=== PATIENT | female | born 1960 | race Caucasian/White ===

== ENCOUNTER → 2017-02-10 | Outpatient (CLI) | payer MEDICARE, MEDICAID ==
--- NOTE | 2017-02-10 14:15 | WOMENS IMAGING REPORT ---
EXAM DESCRIPTION: 3D SCREENING MAMMO BILAT COMPLETED DATE/TIME: 02/10/2017 1:57 pm REASON FOR STUDY: ROUTINE SCREENING 3D; Z12.31 Z12.31 ENCNTR SCREEN MAMMOGRAM FOR MALIGNANT NEOPLAS M OF [place] COMPARISON: 02/08/2016 and 12/29/2013. TECHNIQUE: Standard craniocaudal and mediolateral oblique views of each breast recorded using digita l acquisition and breast tomosynthesis. LIMITATIONS: None. FINDINGS: No masses, calcifications or architectural distortion. No areas of suspicion. Read with the assistance of CAD. .[facility] - R2 Cenova Version 1.3 .[facility] Imaging - R2 Cenova Version 1.3 .[facility] Imaging - R2 Cenova Version 2.4 .[facility] - R2 Cenova Version 2.4 .[facility] - R2 [employer] Version 9.2 IMPRESSION: NORMAL MAMMOGRAM. BIRADS 1. BREAST DENSITY: b. There are scattered areas of fibroglandular density. BIRAD: 1 NEGATIVE RECOMMENDATION: ROUTINE SCREENING COMMENT: The patient has been notified of the results by letter per SA requirements. Additional no tification policies are in place for contacting patient with suspicious or incomplete findings. Quality ID #[id number]: The [employer] recommends an annual screening mammogram for women aged 40 years or over. This facility utilizes a reminder system to ensure that all patients receive reminder letters, and/or direct phone calls for appointments. This includes reminders for routine scr eening mammograms, diagnostic mammograms, or other Breast Imaging Interventions when appropriate. Th is patient will be placed in the appropriate reminder system. The [employer] [place] [employer] (ACR) has developed recommendations for screening MRI of the breast s in certain patient populations, to be used in conjunction with mammography. Breast MRI surveillanc e may be appropriate for women with more than 20% lifetime risk of developing breast cancer as deter mined by genetic testing, significant family history of the disease, or history of mantle radiation f or Hodgkins Disease. ACR Practice Guidelines 2008. DBT Technology DBT is a type of tomographic mammography. With conventional mammography, overlapping breast tissue ma y make lesions difficult to detect, even with good compression. DBT uses an x-ray tube that rotates a round the breast, taking images at different angles. These images are then combined to create thin sl ices of the breast that the radiologist can view as a 3D reconstruction. The [employer] unit can perform full-field digital mammograms (2D imaging); or DBT (3D imaging); or both, in a combination mode that quickly performs both the mammogram and the tomosynthesis scan while the breast is still compressed. PQRS 6045F: Fluoroscopic imaging is not utilized for breast tomosynthesis. TECHNICAL DOCUMENTATION: FINDING NUMBER: (1) ASSESSMENT: (1) JOB ID: [id number] [employer]- All Rights Reserved
== END ==
LOC: WI 11:36
PROVIDERS: ATTEND Family Medicine
DX: Z12.31 Encounter for screening mammogram for malignant neoplasm of breast (principal)
CPT/HCPCS: 77063; G0202; 77067

== ENCOUNTER 2019-01-31 07:27 | Inpatient (IN) | payer MEDICARE ==
--- NOTE | 2019-01-31 09:23 | ER Document Report ---
ED Medical Screen (RME) - General Chief Complaint: Shortness Of Breath Stated Complaint: SHORTNESS OF BREATH Time Seen by Provider: 01/31/19 09:16 Primary Care Provider: NARDA MODI MD [Primary Care Provider] - Follow up as needed Mode of Arrival: Medic Information source: Patient Notes: Patient presents emergency department via EMS for complaints of shortness of breath congestion and fever since Thursday. History of hypertension multiple myeloma. Still taking chemo tabs. Complains of upper back pain. No trauma. Received DuoNeb by EMS no active wheezing at this time. I have greeted and performed a rapid initial assessment of this patient. A comprehensive ED assessment and evaluation of the patient, analysis of test results and completion of the medical decision making process will be conducted by additional ED providers. Dictation of this chart was performed using voice recognition software; therefore, there may be some unintended grammatical errors. TRAVEL OUTSIDE OF THE [place] IN LAST 30 DAYS: No - Related Data Allergies/Adverse Reactions: penicillin V [Penicillin V] Allergy (Unknown, Verified 01/31/19 07:28) vancomycin Allergy (Unknown, Verified 01/31/19 07:28) Pruritis codeine [Codeine] Allergy (Verified 01/31/19 07:28) Past Medical History - Social History Chew tobacco use (# tins/day): No Frequency of alcohol use: None Drug Abuse: None - Past Medical History Cardiac Medical History: Reports: Hx Hypertension Denies: Hx Coronary Artery Disease, Hx Heart Attack Pulmonary Medical History: Denies: Hx Asthma, Hx Bronchitis, Hx COPD, Hx Pneumonia Neurological Medical History: Denies: Hx Cerebrovascular Accident, Hx Seizures Renal/ Medical History: Denies: Hx Peritoneal Dialysis Musculoskeltal Medical History: Denies Hx Arthritis Past Surgical History: Denies: Hx Hysterectomy - Immunizations Hx Diphtheria, Pertussis, Tetanus Vaccination: Yes Physical Exam - Vital signs Vitals: Temp Pulse Resp BP Pulse Ox 98.1 F 118 H 24 H 133/81 H 93 01/31/19 07:31 01/31/19 07:31 01/31/19 07:31 01/31/19 07:31 01/31/19 07:31 Course - Vital Signs Vital signs: Temp Pulse Resp BP Pulse Ox 98.1 F 118 H 24 H 133/81 H 93 01/31/19 07:31 01/31/19 07:31 01/31/19 07:31 01/31/19 07:31 01/31/19 07:31 Doctor's Discharge - Discharge Referrals: NARDA MODI MD [Primary Care Provider] - Follow up as needed
[2019-01-31 10:20] LABS: ABSOLUTE LYMPHOCYTES (AUTO) 0.2 10^3/uL (0.5-4.7); ABSOLUTE MONOCYTES (AUTO) 0.5 10^3/uL (0.1-1.4); ABSOLUTE NEUT (AUTO) 2.1 10^3/uL (1.7-8.2); BASOPHILS % (AUTO) 0.2 % (0-2); EOSINOPHILS % (AUTO) 0.2 % (0-6); HEMATOCRIT 36.2 % (36.0-47.0); HEMOGLOBIN 12.7 g/dL (12.0-15.5); MEAN CORPUSCULAR VOLUME 94 fl (80-97); MONOCYTES % (AUTO) 17.4 % (3-13); PLATELET COUNT 117 10^3/uL (150-450); RED BLOOD COUNT 3.85 10^6/uL (3.72-5.28); RED CELL DISTRIBUTION WIDTH 13.7 % (11.5-14.0); SEGMENTED NEUTROPHILS % (AUTO) 75.2 % (42-78); TOTAL CELLS COUNTED % (AUTO) 100 %; WHITE BLOOD COUNT 2.7 10^3/uL (4.0-10.5)
[2019-01-31 10:25] LABS: ALANINE AMINOTRANSFERASE 26 U/L (9-52); ALBUMIN 3.9 g/dL (3.5-5.0); ALKALINE PHOSPHATASE 96 U/L (38-126); ANION GAP 11 (5-19); ASPARTATE AMINO TRANSFERASE 26 U/L (14-36); BILIRUBIN,DIRECT 0.3 mg/dL (0.0-0.4); BLOOD UREA NITROGEN 12 mg/dL (7-20); CALCIUM 8.5 mg/dL (8.4-10.2); CARBON DIOXIDE 27 mmol/L (22-30); CHLORIDE 99 mmol/L (98-107); CREATINE KINASE 86 U/L (30-135); GLUCOSE 137 mg/dL (75-110); SODIUM 137.3 mmol/L (137-145); TOTAL PROTEIN 7.4 g/dL (6.3-8.2)
[2019-01-31 10:29] LABS: POTASSIUM 2.9 mmol/L (3.6-5.0)
--- NOTE | 2019-01-31 10:30 | RADIOLOGY REPORT (SQ) ---
EXAM DESCRIPTION: CHEST 2 VIEWS COMPLETED DATE/TIME: 01/31/2019 10:20 am REASON FOR STUDY: sob COMPARISON: 03/04/2013 EXAM PARAMETERS: NUMBER OF VIEWS: two views TECHNIQUE: Digital Frontal and Lateral radiographic views of the chest acquired. RADIATION DOSE: NA LIMITATIONS: none FINDINGS: LUNGS AND PLEURA: Slight atelectasis or scarring at the left lung base. The right lung i s clear. No pneumothorax or pleural effusion. MEDIASTINUM AND HILAR STRUCTURES: No masses or contour abnormalities. HEART AND VASCULAR STRUCTURES: Heart normal size. No evidence for failure. BONES: No acute findings. HARDWARE: None in the chest. OTHER: No other significant finding. IMPRESSION: 1. Slight atelectasis or scarring at the left lung base. No acute findings. TECHNICAL DOCUMENTATION: JOB ID: [id number] [employer]- All Rights Reserved Reading location - IP/workstation name: [email or web address]
[2019-01-31] MEDS ORDERED: IPRATROPIUM/ALBUTEROL 0.5-2.5 MG/3 ML AMPUL NEB ONE (11:38)
--- NOTE | 2019-01-31 11:43 | ER Document Report ---
ED General - General Chief Complaint: Shortness Of Breath Stated Complaint: SHORTNESS OF BREATH Time Seen by Provider: 01/31/19 09:16 Mode of Arrival: Medic TRAVEL OUTSIDE OF THE [place] IN LAST 30 DAYS: No - HPI Notes: Patient is a 58-year-old female with a history of high blood pressure and multiple myeloma who presents with a chief complaint of shortness of breath and congestion. Patient states that she has had a productive cough with yellow sputum since Thursday as well as nasal congestion and runny nose. Patient states she has had sweats and chills. Patient is unsure if she has had a fever as she does not have a thermometer at home but she feels like she has been febrile. States that on Thursday she did have the episodes of diarrhea. - Related Data Allergies/Adverse Reactions: penicillin V [Penicillin V] Allergy (Unknown, Verified 01/31/19 07:28) vancomycin Allergy (Unknown, Verified 01/31/19 07:28) Pruritis codeine [Codeine] Allergy (Verified 01/31/19 07:28) Past Medical History - General Information source: Patient - Social History Smoking Status: Never Smoker Chew tobacco use (# tins/day): No Frequency of alcohol use: None Drug Abuse: None Family History: Reviewed & Not Pertinent Patient has suicidal ideation: No Patient has homicidal ideation: No - Past Medical History Cardiac Medical History: Reports: Hx Hypertension Denies: Hx Coronary Artery Disease, Hx Heart Attack Pulmonary Medical History: Reports: Other - Hx. Bronchitis Denies: Hx Asthma, Hx Bronchitis, Hx COPD, Hx Pneumonia EENT Medical History: Reports: None Neurological Medical History: Reports: None. Denies: Hx Cerebrovascular Accident, Hx Seizures Endocrine Medical History: Reports: None Renal/ Medical History: Reports: None. Denies: Hx Peritoneal Dialysis Malignancy Medical History: Reports: Other - Multiple Myeloma, currently on oral chemo daily GI Medical History: Reports: None Musculoskeletal Medical History: Reports None, Denies Hx Arthritis Skin Medical History: Reports None Psychiatric Medical History: Reports: None Traumatic Medical History: Reports: None Infectious Medical History: Reports: None Surgical Hx: Negative Past Surgical History: Denies: Hx Hysterectomy - Immunizations Hx Diphtheria, Pertussis, Tetanus Vaccination: Yes Review of Systems - Review of Systems Constitutional: See HPI EENT: See HPI Cardiovascular: No symptoms reported Respiratory: See HPI Gastrointestinal: See HPI Genitourinary: No symptoms reported Female Genitourinary: No symptoms reported Musculoskeletal: No symptoms reported Skin: No symptoms reported Hematologic/Lymphatic: No symptoms reported Neurological/Psychological: No symptoms reported Physical Exam - Vital signs Vitals: Temp Pulse Resp BP Pulse Ox 98.1 F 118 H 24 H 133/81 H 93 01/31/19 07:31 01/31/19 07:31 01/31/19 07:31 01/31/19 07:31 01/31/19 07:31 Interpretation: Hypertensive, Tachycardic, Tachypneic - Notes Notes: GENERAL: Well-appearing, well-nourished and in no acute distress. HEAD: Atraumatic, normocephalic. EYES: Pupils equal round and reactive to light, extraocular movements intact, sclera anicteric, conjunctiva are normal. ENT: TMs normal, nares patent, oropharynx clear without exudates. Dry mucous membranes. NECK: Normal range of motion, supple without lymphadenopathy or JVD. LUNGS: Coarse breath sounds bilaterally throughout with scattered rhonchi and expiratory wheeze in lower bases. HEART: Tachycardiac rate with regular rhythm without murmurs, rubs or gallops. ABDOMEN: Soft, nontender, normoactive bowel sounds. No guarding, no rebound. No masses appreciated. BACK: No cervical, thoracic, lumbar midline tenderness. No saddle anesthesia, normal distal neurovascular exam. GENITOURINARY: Deferred. EXTREMITIES: Normal range of motion, no pitting or edema. No clubbing or cya nosis. NEUROLOGICAL: Cranial nerves II through XII grossly intact. Normal speech, normal gait. PSYCH: Normal mood, normal affect. SKIN: Warm, Dry, normal turgor, no rashes or lesions noted. Course - Re-evaluation Re-evalutation: 01/31/19 12:[address] Field who is patient's oncologist. Patient does report a history of low potassium. She states she takes 40 mEq twice a day but has not has her dose today. Potassium replacement initiated, magnesium level added on and low at 1.5, will replace magnesium in conjunction with potassium. Once speaking with oncologist will consult for admission due to hypokalemia, non specific t wave abnormalities and borderline prolonged QT at 481. Patient is in a sinus tach at 105 on the monitor with the occasional PVC. 12:30 Updated patient on plan for admission. Verbalized understanding and denies questions at this time. Patient states after receiving duoneb she feels relief with her breathing and shortness of breath. 01/31/19 13:00 Dr. Jones at bedside for patient evaluation. - Vital Signs Vital signs: Temp Pulse Resp BP Pulse Ox 97.9 F 88 20 129/67 H 93 01/31/19 16:17 01/31/19 16:17 01/31/19 16:17 01/31/19 16:17 01/31/19 16:17 - Laboratory Result Diagrams: 01/31/19 09:49 01/31/19 09:49 Laboratory results interpreted by me: 01/31/19 01/31/19 01/31/19 09:49 09:49 09:49 WBC 2.7 L Plt Count 117 L Lymphocytes % 7.0 L Monocytes % 17.4 H Absolute Lymphocytes 0.2 L Potassium 2.9 L* Est GFR (Non-Af Amer) 50 L Glucose 137 H Lactic Acid 2.4 H Magnesium 01/31/19 09:49 WBC Plt Count Lymphocytes % Monocytes % Absolute Lymphocytes Potassium Est GFR (Non-Af Amer) Glucose Lactic Acid Magnesium 1.5 L - Diagnostic Test Radiology reviewed: Reports reviewed - EKG Interpretation by Me Additional EKG results interpreted by me: 01/31/19 12:54 Patient's EKG is a sinus rhythm at a rate of 94, LA 140, QT 384 and QTC 481. Patient does have a borderline prolonged QT interval. Patient has a normal axis deviation. She does have a T wave inversion in lead II but this is not consistent in consecutive leads. Discharge - Discharge Clinical Impression: Hypokalemia, Hypomagnesemia, Shortness of breath, Bronchitis, Cough Multiple myeloma Qualifiers: Multiple myeloma remission status: not in remission Qualified Code(s): C90.00 - Multiple myeloma not having achieved remission Condition: Stable Disposition: ADMITTED INPATIENT Admitting Provider: Karen (Hospitalist) Unit Admitted: Telemetry
[2019-01-31] MEDS ORDERED: POTASSIUM CHLORIDE 10 MEQ CAPSULE.ER PO ONE (11:52)
[2019-01-31] MEDS: POTASSI CL 20 MEQ/50 ML RIDER 20 MEQ/50 ML RTUPB IV SCH ×2 (12:12→14:11)
[2019-01-31] MEDS ORDERED: PREDNISONE 20 MG TABLET PO ONE (12:51)
--- NOTE | 2019-01-31 13:19 | EKG REPORT ---
SEVERITY:- ABNORMAL ECG - SINUS RHYTHM NONSPECIFIC T ABNORMALITIES, INFERIOR LEADS : Confirmed by: Go Bradshaw MD 31-Jan-2019 13:18:04
[2019-01-31] MEDS: MAGNESIUM SULFATE/D5W 1 GM/100 ML RTUPB IV SCH ×2 (14:11→15:25)
[2019-01-31] MEDS ORDERED: ONDANSETRON 4 MG TAB.RAPDIS PO PRN (15:24)
[2019-01-31] MEDS ORDERED: ONDANSETRON HCL INJ/PF 4 MG/2 ML SDV IV PRN (15:24)
[2019-01-31] MEDS ORDERED: NORMAL SALINE 1000 ML 1,000 ML IV PRN (15:24)
[2019-01-31] MEDS ORDERED: DOCUSATE SODIUM 100 MG CAPSULE PO PRN (15:24)
[2019-01-31] MEDS ORDERED: MAG HYDROX/AL HYDROX/SIMETH SUSP 30 ML UDCUP PO PRN (15:24)
[2019-01-31] MEDS ORDERED: ACETAMINOPHEN 325 MG TABLET PO PRN (15:24)
[2019-01-31] MEDS ORDERED: LEVALBUTEROL HCL NEB 0.63 MG/3 ML AMPUL NEB PRN (15:24)
[2019-01-31] MEDS ORDERED: PROMETHAZINE HCL INJ 25 MG/1 ML VIAL IV PRN (15:55)
[2019-01-31] MEDS ORDERED: PROMETHAZINE HCL 25 MG TABLET PO PRN (15:55)
[2019-01-31] MEDS ORDERED: OXYCODONE HCL IR 5 MG TABLET PO PRN (16:24)
[2019-01-31] MEDS: NORMAL SALINE 1000 ML 1,000 ML IV PRN (16:35)
[2019-01-31] MEDS ORDERED: REVLIMID 5 MG PO SCH (18:00)
[2019-01-31] MEDS: MAGNESIUM OXIDE 400 MG TABLET PO SCH (18:04)
[2019-01-31] MEDS: IPRATROPIUM/ALBUTEROL 0.5-2.5 MG/3 ML AMPUL NEB SCH (19:43)
[2019-01-31] MEDS: POTASSIUM CHLORIDE 10 MEQ CAPSULE.ER PO SCH (21:10)
[2019-01-31] MEDS ORDERED: GUAIFENESIN SYRP 200 MG/10 ML UDC PO PRN (22:35)
[2019-01-31 23:01] LABS: ANION GAP 14 (5-19); BLOOD UREA NITROGEN 11 mg/dL (7-20); CALCIUM 7.8 mg/dL (8.4-10.2); CARBON DIOXIDE 21 mmol/L (22-30); CHLORIDE 106 mmol/L (98-107); GLUCOSE 161 mg/dL (75-110); POTASSIUM 3.5 mmol/L (3.6-5.0); SODIUM 140.8 mmol/L (137-145)
[2019-02-01] MEDS: NORMAL SALINE 1000 ML 1,000 ML IV PRN
[2019-02-01] MEDS: IPRATROPIUM/ALBUTEROL 0.5-2.5 MG/3 ML AMPUL NEB SCH ×4 (01:31→20:16)
[2019-02-01 04:46] LABS: ANION GAP 8 (5-19); BLOOD UREA NITROGEN 12 mg/dL (7-20); CALCIUM 7.3 mg/dL (8.4-10.2); CARBON DIOXIDE 24 mmol/L (22-30); CHLORIDE 111 mmol/L (98-107); GLUCOSE 131 mg/dL (75-110); POTASSIUM 3.4 mmol/L (3.6-5.0); SODIUM 142.9 mmol/L (137-145)
[2019-02-01 04:55] LABS: HEMATOCRIT 31.7 % (36.0-47.0); HEMOGLOBIN 10.8 g/dL (12.0-15.5); MEAN CORPUSCULAR HEMOGLOBIN 32.4 pg (27.0-33.4); MEAN CORPUSCULAR HGB CONC 34.1 g/dL (32.0-36.0); MEAN CORPUSCULAR VOLUME 95 fl (80-97); PLATELET COUNT 106 10^3/uL (150-450); RED BLOOD COUNT 3.33 10^6/uL (3.72-5.28); RED CELL DISTRIBUTION WIDTH 13.7 % (11.5-14.0)
[2019-02-01] MEDS: POTASSIUM CHLORIDE 10 MEQ CAPSULE.ER PO SCH ×3 (05:36→21:25)
[2019-02-01 07:36] LABS: ABSOLUTE LYMPHOCYTES# (MANUAL) 0.4 10^3/uL (0.5-4.7); ABSOLUTE MONOCYTES # (MANUAL) 0.1 10^3/uL (0.1-1.4); BAND NEUTROPHILS % (MANUAL) 2 % (3-5); BASOPHILS % (MANUAL) 0 % (0-2); EOSINOPHILS % (MANUAL) 0 % (0-6); LYMPHOCYTES % (MANUAL) 20 % (13-45); MONOCYTES % (MANUAL) 6 % (3-13); SEGMENTED NEUTROPHILS % (MAN) 72 % (42-78); TOTAL CELLS COUNTED 50
[2019-02-01 07:37] LABS: OVALOCYTES SLIGHT; PLATELET COMMENT DECREASED; POIKILOCYTOSIS SLIGHT; POLYCHROMASIA SLIGHT; TEAR DROP CELLS SLIGHT
[2019-02-01] MEDS: MAGNESIUM OXIDE 400 MG TABLET PO SCH ×3 (08:26→17:05)
--- NOTE | 2019-02-01 09:12 | PDOC H&P ---
History of Present Illness Admission Date/PCP: 01/31/19 14:01 NARDA MODI MD Patient complains of: Productive cough History of Present Illness: ROBE CLEMENT is a 58 year old female who presents with a productive cough of yellow-green sputum. She has underlying multiple myeloma with a depressed white cell count. She reports a recent case of bronchitis 1 month ago. She states that on Thursday she began having postnasal drip and sinus congestion. She has no history of seasonal allergies. She had a productive cough of greenish-yellow sputum. She was not markedly hypoxic. She denies any fever. EMS said her temperature was slightly elevated. Additionally she has chronic low potassium and low magnesium secondary to her chemotherapy. Her white blood cell count was only 2.1, she could required antibiotics as well as potassium and magnesium replacement until she was referred to the hospital service for admission. Past Medical History Cardiac Medical History: Reports: Hypertension Denies: Coronary Artery Disease, Myocardial Infarction Pulmonary Medical History: Reports: Bronchitis Denies: Asthma, Chronic Obstructive Pulmonary Disease (COPD), Pneumonia Neurological Medical History: Denies: Seizures Malignancy Medical History: Reports: Other - Multiple myeloma GI Medical History: Denies: Cirrhosis, Crohn's Disease, Peptic Ulcer Disease, Ulcerative Colitis Musculoskeltal Medical History: Denies: Arthritis Hematology: Reports: Anemia Past Surgical History Past Surgical History: Reports: Other - Stem cell transplant Denies: Hysterectomy Social History Information Source: Patient Lives with: Family Smoking Status: Former Smoker - Stop smoking in 2012 Frequency of Alcohol Use: Occasional Hx Recreational Drug Use: No Hx Prescription Drug Abuse: No Past Social History Note: with one child - Advance Directive Resuscitation Status: Full Code Surrogate healthcare decision maker:: No formal paperwork. is very familiar with her wishes and is the primary decision maker. Family History Family History: CAD - With congestive heart failure, Other - Dementia, skin cancer, kidney failure Parental Family History Reviewed: Yes Children Family History Reviewed: Yes Sibling(s) Family History Reviewed.: Yes Medication/Allergy Home Medications: Albuterol Sulfate [Proair HFA Inhalation Aerosol 8.5 gm MDI] 1 puff IH Q4HP PRN 01/31/19 Amlodipine Besylate [Norvasc 10 mg Tablet] 10 mg PO DAILY 01/31/19 Aspirin [Adult Low Dose Aspirin EC] 81 mg PO DAILY 01/31/19 Calcium Carbonate/Vitamin D3 [Calcium 600-Vit D3 800 Tablet] 1 tab PO DAILY 01/31/19 Lansoprazole [Prevacid] 15 mg PO DAILY 01/31/19 Lenalidomide [Revlimid] 5 mg PO DAILY 01/31/19 Magnesium Oxide [Magnesium] 500 mg PO DAILY 01/31/19 Multivitamin [Daily Multiple Vitamin] 1 tab PO DAILY 01/31/19 Oxycodone HCl [Oxycodone HCl 10 MG Tablet] 10 mg PO BIDP PRN 01/31/19 Potassium Chloride [Klor-Con M20] 20 meq PO BID 01/31/19 Allergies/Adverse Reactions: penicillin V [Penicillin V] Allergy (Unknown, Verified 01/31/19 07:28) vancomycin Allergy (Unknown, Verified 01/31/19 07:28) Pruritis codeine [Codeine] Allergy (Verified 01/31/19 07:28) Review of Systems Constitutional: PRESENT: anorexia, fever(s). ABSENT: headache(s), night sweats Eyes: ABSENT: visual disturbances Ears: ABSENT: hearing changes Nose, Mouth, and Throat: ABSENT: sore throat Cardiovascular: ABSENT: chest pain, edema, palpitations Respiratory: PRESENT: dyspnea, sputum. ABSENT: hemoptysis Gastrointestinal: PRESENT: heartburn, nausea. ABSENT: abdominal pain, constipation, diarrhea, hematemesis, hematochezia, vomiting Genitourinary: ABSENT: difficulty urinating, dysuria, hematuria Musculoskeletal: PRESENT: other - Poor coordination with the right arm from myeloma. ABSENT: deformity, joint swelling Integumentary: PRESENT: other - Very dry skin with easy bruising Neurological: ABSENT: abnormal speech, confusion, memory loss, syncope, vertigo Psychiatric: ABSENT: anxiety, depression, hallucinations Endocrine: ABSENT: cold intolerance, heat intolerance, polydipsia, polyuria Hematologic/Lymphatic: PRESENT: easy bruising Physical Exam Vital Signs: Temp Pulse Resp BP Pulse Ox 98.1 F 118 H 38 H 151/78 H 97 01/31/19 07:31 01/31/19 07:31 01/31/19 15:00 01/31/19 14:03 01/31/19 15:00 Intake & Output 01/30/19 01/31/19 02/01/19 06:59 06:59 06:59 Intake Total 100 Balance 100 Weight 79.7 kg General appearance: PRESENT: cooperative, mild distress, well-developed Head exam: PRESENT: atraumatic, normocephalic Eye exam: PRESENT: conjunctiva pink, EOMI. ABSENT: scleral icterus Ear exam: PRESENT: normal external ear exam Mouth exam: PRESENT: dry mucosa, tongue midline, other - Coated tongue Neck exam: PRESENT: full ROM. ABSENT: carotid bruit, JVD, lymphadenopathy Respiratory exam: PRESENT: rales - Rales versus atelectasis at the bases, s ymmetrical, unlabored, other - Very congested cough. ABSENT: accessory muscle use, rhonchi, tachypnea, wheezes Cardiovascular exam: PRESENT: RRR - With distant heart sounds, +S1, +S2 GI/Abdominal exam: PRESENT: normal bowel sounds, soft. ABSENT: distended, guarding, tenderness Rectal exam: PRESENT: deferred Gentrourinary exam: ABSENT: indwelling catheter Extremities exam: ABSENT: joint swelling, pedal edema Musculoskeletal exam: PRESENT: ambulatory Neurological exam: PRESENT: alert, awake, oriented to person, oriented to place, oriented to time, oriented to situation, CN II-XII grossly intact Psychiatric exam: PRESENT: normal mood. ABSENT: agitated, anxious Focused psych exam: ABSENT: delusional, restlessness Skin exam: PRESENT: other - Very dry skin with scattered ecchymotic areas. Results Laboratory Results: 01/31/19 09:49 01/31/19 09:49 01/31/19 01/31/19 01/31/19 09:49 09:49 09:49 WBC 2.7 L RBC 3.85 Hgb 12.7 Hct 36.2 MCV 94 MCH 33.0 MCHC 35.0 RDW 13.7 Plt Count 117 L Seg Neutrophils % 75.2 Lymphocytes % 7.0 L Monocytes % 17.4 H Eosinophils % 0.2 Basophils % 0.2 Absolute Neutrophils 2.1 Absolute Lymphocytes 0.2 L Absolute Monocytes 0.5 Absolute Eosinophils 0.0 Absolute Basophils 0.0 Sodium 137.3 Potassium 2.9 L* Chloride 99 Carbon Dioxide 27 Anion Gap 11 BUN 12 Creatinine 1.12 Est GFR ( Amer) > 60 Est GFR (Non-Af Amer) 50 L Glucose 137 H Lactic Acid 2.4 H Calcium 8.5 Magnesium Total Bilirubin 1.0 AST 26 ALT 26 Alkaline Phosphatase 96 Total Protein 7.4 Albumin 3.9 01/31/19 01/31/19 09:49 14:20 WBC RBC Hgb Hct MCV MCH MCHC RDW Plt Count Seg Neutrophils % Lymphocytes % Monocytes % Eosinophils % Basophils % Absolute Neutrophils Absolute Lymphocytes Absolute Monocytes Absolute Eosinophils Absolute Basophils Sodium Potassium Chloride Carbon Dioxide Anion Gap BUN Creatinine Est GFR ( Amer) Est GFR (Non-Af Amer) Glucose Lactic Acid 2.6 H Calcium Magnesium 1.5 L Total Bilirubin AST ALT Alkaline Phosphatase Total Protein Albumin 01/31/19 01/31/19 09:49 09:49 Creatine Kinase 86 Troponin I 0.017 Impressions: Chest X-Ray 01/31/19 09:19 IMPRESSION: 1. Slight atelectasis or scarring at the left lung base. No acute findings. Assessment and Plan - Diagnosis (1) Hypokalemia Is this a current diagnosis for this admission?: Yes Plan: The chemotherapy is primarily responsible. She will receive IV replacement and I will increase her oral dose of potassium chloride. (2) Hypomagnesemia Is this a current diagnosis for this admission?: Yes Plan: She reports that this is an ongoing issue due to her chemotherapy. IV replacement and increase her oral dose. (3) Bronchitis Is this a current diagnosis for this admission?: Yes Plan: No evidence of pneumonia on chest x-ray. She does have a low white blood cell count although borderline for neutropenia. I will start her on azithromycin as it is an excellent antibiotic for bronchitis. (4) Cough Is this a current diagnosis for this admission?: Yes Plan: Antitussives as needed (5) Shortness of breath Is this a current diagnosis for this admission?: Yes Plan: Likely related to the bronchitis and cough. No oxygen has been required. This should improve on its own. (6) Multiple myeloma Qualifiers: Multiple myeloma remission status: not in remission Qualified Code(s): C90.00 - Multiple myeloma not having achieved remission Is this a current diagnosis for this admission?: Yes Plan: Continue her current medication. Oncology will see the patient. Because the chemotherapy is not on formulary I requested that the patient keep her medicine so that she may continue to take it uninterrupted. 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 However as she is on ongoing therapy with immunosuppression I did asked that neutropenic precautions be taken and a neutropenic diet to be started. I will defer to oncology if they feel that this is not necessary. (8) Mononeuropathy of right upper extremity Is this a current diagnosis for this admission?: Yes Plan: The patient states that ever since her myeloma she has experienced decreased function in her right arm. She has decreased dexterity in the hand. I have ordered occupational therapy to evaluate
[2019-02-01] MEDS ORDERED: ALBUTEROL SULFATE HFA (90 MCG/PUFF) 200 PUFF/8.5 GM MDI IH PRN (09:31)
--- NOTE | 2019-02-01 09:31 | PDOC CONSULTATION ---
Consultation Consult Date: 02/01/19 Attending physician:: EMMA HANEY Provider Consulted: DIMAS SNOW Consult reason:: SOB/Cough, bronchitis, resp distress in setting of myeloma s/p transplant History of Present Illness Admission Date/PCP: 01/31/19 14:01 NARDA MODI MD Patient complains of: cough, SOB History of Present Illness: ROBE CLEMENT is a 58 year old female w/ known h/o recent URI, was seen by her PCP recently. She has had cough/SOB and chest congestion was treated w/ course of ZPAK but did not improve, SOB worsened and pt presented to ED was tachypnic, tachycardic and admitted for acute bronchitis, concern of pneumonia in post transplant somewhat immunocompromised pt. She is on atbx broad spec currently. Feeling a little better today, getting neb tx. Of note dx w/ MM in 02/2013, diffuse dx, induction chemo w/ RVD followed by transplant 10/2013, since then stringent CR on maintenance revlimid. Past Medical History Cardiac Medical History: Reports: Hypertension Denies: Coronary Artery Disease, Myocardial Infarction Pulmonary Medical History: Reports: Bronchitis, Other - Hx. Bronchitis Denies: Asthma, Chronic Obstructive Pulmonary Disease (COPD), Pneumonia EENT Medical History: Reports: None Neurological Medical History: Reports: None Denies: Seizures Endocrine Medical History: Reports: None Renal/ Medical History: Reports: None Malignancy Medical History: Reports: Other - Multiple myeloma s/p transplant on maintenance revlimid GI Medical History: Reports: None Denies: Cirrhosis, Crohn's Disease, Peptic Ulcer Disease, Ulcerative Colitis Musculoskeltal Medical History: Reports: None Denies: Arthritis Skin Medical History: Reports: None Psychiatric Medical History: Reports: None Denies: Depression Traumatic Medical History: Reports: None Hematology: Reports: Anemia Infectious Medical History: Reports: None Past Surgical History Past Surgical History: Reports: Other - Stem cell transplant Denies: Hysterectomy Social History Information Source: Patient Lives with: Family Smoking Status: Former Smoker - Stop smoking in 2012 Number of Years Smokin Last Time Smoked: 02/28/2013 Frequency of Alcohol Use: Occasional Hx Recreational Drug Use: No Hx Prescription Drug Abuse: No - Advance Directive Resuscitation Status: Full Code Family History Family History: CAD - With congestive heart failure, Other - Dementia, skin cancer, kidney failure Parental Family History Reviewed: Yes Children Family History Reviewed: Yes Sibling(s) Family History Reviewed.: Yes Medication/Allergy Home Medications: Albuterol Sulfate [Proair HFA Inhalation Aerosol 8.5 gm MDI] 1 puff IH Q4HP PRN 01/31/19 Amlodipine Besylate [Norvasc 10 mg Tablet] 10 mg PO DAILY 01/31/19 Aspirin [Adult Low Dose Aspirin EC] 81 mg PO DAILY 01/31/19 Calcium Carbonate/Vitamin D3 [Calcium 600-Vit D3 800 Tablet] 1 tab PO DAILY 01/31/19 Lansoprazole [Prevacid] 15 mg PO DAILY 01/31/19 Lenalidomide [Revlimid] 5 mg PO DAILY 01/31/19 Magnesium Oxide [Magnesium] 500 mg PO DAILY 01/31/19 Multivitamin [Daily Multiple Vitamin] 1 tab PO DAILY 01/31/19 Oxycodone HCl [Oxycodone HCl 10 MG Tablet] 10 mg PO BIDP PRN 01/31/19 Potassium Chloride [Klor-Con M20] 20 meq PO BID 01/31/19 Allergies/Adverse Reactions: penicillin V [Penicillin V] Allergy (Unknown, Verified 01/31/19 07:28) vancomycin Allergy (Unknown, Verified 01/31/19 07:28) Pruritis codeine [Codeine] Allergy (Verified 01/31/19 07:28) Review of Systems Constitutional: ABSENT: chills, fever(s), headache(s), weight gain, weight loss Eyes: ABSENT: visual disturbances Ears: ABSENT: hearing changes Cardiovascular: ABSENT: chest pain, dyspnea on exertion, edema, orthropnea, palpitations Respiratory: ABSENT: cough, hemoptysis Gastrointestinal: ABSENT: abdominal pain, constipation, diarrhea, hematemesis, hematochezia, nausea, vomiting Genitourinary: ABSENT: dysuria, hematuria Musculoskeletal: ABSENT: joint swelling Integumentary: ABSENT: rash, wounds Neurological: ABSENT: abnormal gait, abnormal speech, confusion, dizziness, focal weakness, syncope Psychiatric: ABSENT: anxiety, depression, homidical ideation, suicidal ideation Endocrine: ABSENT: cold intolerance, heat intolerance, polydipsia, polyuria Hematologic/Lymphatic: ABSENT: easy bleeding, easy bruising Physical Exam Vital Signs: Temp Pulse Resp BP Pulse Ox 97.9 F 104 H 24 H 134/71 H 94 02/01/19 07:26 02/01/19 08:14 02/01/19 08:14 02/01/19 07:26 02/01/19 08:14 Intake & Output 01/31/19 02/01/19 02/02/19 06:59 06:59 06:59 Intake Total 3875 Balance 3875 Weight 82.3 kg General appearance: PRESENT: no acute distress, well-developed, well-nourished Head exam: PRESENT: atraumatic, normocephalic Eye exam: PRESENT: conjunctiva pink, EOMI, PERRLA. ABSENT: scleral icterus Ear exam: PRESENT: normal external ear exam Mouth exam: PRESENT: moist, tongue midline Neck exam: ABSENT: carotid bruit, JVD, lymphadenopathy, thyromegaly Respiratory exam: PRESENT: clear to auscultation maxx. ABSENT: rales, rhonchi, wheezes Cardiovascular exam: PRESENT: RRR. ABSENT: diastolic murmur, rubs, systolic murmur Pulses: PRESENT: normal dorsalis pedis pul Vascular exam: PRESENT: normal capillary refill GI/Abdominal exam: PRESENT: normal bowel sounds, soft. ABSENT: distended, guarding, mass, organolmegaly, rebound, tenderness Rectal exam: PRESENT: deferred Extremities exam: PRESENT: full ROM. ABSENT: calf tenderness, clubbing, pedal edema Neurological exam: PRESENT: alert, awake, oriented to person, oriented to place, oriented to time, oriented to situation, CN II-XII grossly intact. ABSENT: motor sensory deficit Psychiatric exam: PRESENT: appropriate affect, normal mood. ABSENT: homicidal ideation, suicidal ideation Skin exam: PRESENT: dry, intact, warm. ABSENT: cyanosis, rash Results Laboratory Results: 02/01/19 04:21 02/01/19 04:21 01/31/19 01/31/19 01/31/19 09:49 09:49 09:49 WBC 2.7 L RBC 3.85 Hgb 12.7 Hct 36.2 MCV 94 MCH 33.0 MCHC 35.0 RDW 13.7 Plt Count 117 L Seg Neutrophils % 75.2 Lymphocytes % 7.0 L Monocytes % 17.4 H Eosinophils % 0.2 Basophils % 0.2 Absolute Neutrophils 2.1 Absolute Lymphocytes 0.2 L Absolute Monocytes 0.5 Absolute Eosinophils 0.0 Absolute Basophils 0.0 Sodium 137.3 Potassium 2.9 L* Chloride 99 Carbon Dioxide 27 Anion Gap 11 BUN 12 Creatinine 1.12 Est GFR ( Amer) > 60 Est GFR (Non-Af Amer) 50 L Glucose 137 H Lactic Acid 2.4 H Calcium 8.5 Magnesium Total Bilirubin 1.0 AST 26 ALT 26 Alkaline Phosphatase 96 Total Protein 7.4 Albumin 3.9 01/31/19 01/31/19 01/31/19 09:49 14:20 22:21 WBC RBC Hgb Hct MCV MCH MCHC RDW Plt Count Seg Neutrophils % Lymphocytes % Monocytes % Eosinophils % Basophils % Absolute Neutrophils Absolute Lymphocytes Absolute Monocytes Absolute Eosinophils Absolute Basophils Sodium Potassium Chloride Carbon Dioxide Anion Gap BUN Creatinine Est GFR ( Amer) Est GFR (Non-Af Amer) Glucose Lactic Acid 2.6 H 3.9 H Calcium Magnesium 1.5 L Total Bilirubin AST ALT Alkaline Phosphatase Total Protein Albumin 01/31/19 02/01/19 02/01/19 22:21 04:21 04:21 WBC 2.0 L RBC 3.33 L Hgb 10.8 L Hct 31.7 L MCV 95 MCH 32.4 MCHC 34.1 RDW 13.7 Plt Count 106 L Seg Neutrophils % Not Reportable Lymphocytes % Not Reportable Monocytes % Not Reportable Eosinophils % Not Reportable Basophils % Not Reportable Absolute Neutrophils Not Reportable Absolute Lymphocytes Not Reportable Absolute Monocytes Not Reportable Absolute Eosinophils Not Reportable Absolute Basophils Not Reportable Sodium 140.8 142.9 Potassium 3.5 L 3.4 L Chloride 106 111 H Carbon Dioxide 21 L 24 Anion Gap 14 8 BUN 11 12 Creatinine 0.83 0.83 Est GFR ( Amer) > 60 > 60 Est GFR (Non-Af Amer) > 60 > 60 Glucose 161 H 131 H Lactic Acid Calcium 7.8 L 7.3 L Magnesium 2.3 Total Bilirubin AST ALT Alkaline Phosphatase Total Protein Albumin 02/01/19 04:21 WBC RBC Hgb Hct MCV MCH MCHC RDW Plt Count Seg Neutrophils % Lymphocytes % Monocytes % Eosinophils % Basophils % Absolute Neutrophils Absolute Lymphocytes Absolute Monocytes Absolute Eosinophils Absolute Basophils Sodium Potassium Chloride Carbon Dioxide Anion Gap BUN Creatinine Est GFR ( Amer) Est GFR (Non-Af Amer) Glucose Lactic Acid 1.0 Calcium Magnesium Total Bilirubin AST ALT Alkaline Phosphatase Total Protein Albumin 01/31/19 01/31/19 09:49 09:49 Creatine Kinase 86 Troponin I 0.017 Impressions: Chest X-Ray 01/31/19 09:19 IMPRESSION: 1. Slight atelectasis or scarring at the left lung base. No acute findings. Status: Image reviewed by me Assessment & Plan - Diagnosis (1) Bronchitis Is this a current diagnosis for this admission?: Yes Plan: Severe, need IV atbx for a few days, failed oupt rx and is immunocompromised, c ont IV atbx awaiting final culture results. Seems to be doing better on current rx. 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 Is this a current diagnosis for this admission?: Yes Plan: Chronic since transplant and while on revlimid (3) Multiple myeloma Qualifiers: Multiple myeloma remission status: in remission Qualified Code(s): C90.01 - Multiple myeloma in remission Is this a current diagnosis for this admission?: Yes Plan: Doing well from this standpoint, hold revlimid until she is d/c'd - Time Time Spent: Greater than 70 Minutes - Inpatient Certification Based on my medical assessment, after consideration of the patient's comorbidities, presenting symptoms, or acuity I expect that the services needed warrant INPATIENT care.: Yes I certify that my determination is in accordance with my understanding of Medicare's requirements for reasonable and necessary INPATIENT services [42 CFR 412.3e].: Yes Medical Necessity: Need For Continuous Telemetry Monitoring, Need for Nebulizer Therapy and Monitoring of Response, Need for IV Antibiotics
--- NOTE | 2019-02-01 09:49 | PDOC PROGRESS REPORT ---
Subjective Progress Note for:: 02/01/19 Subjective:: 58 year old female who presents with a productive cough of yellow-green sputum. She has underlying multiple myeloma with a depressed white cell count. She reports a recent case of bronchitis 1 month ago. She states that on Thursday she began having postnasal drip and sinus congestion. She has no history of seasonal allergies. She had a productive cough of greenish-yellow sputum. She was not markedly hypoxic. She denies any fever. EMS said her temperature was slightly elevated. Additionally she has chronic low potassium and low magnesium secondary to her chemotherapy. Her white blood cell count was only 2.1, she could required antibiotics as well as potassium and magnesium replacement until she was referred to the hospital service for admission. Reason For Visit: HYPOKALEMIA,RESPIRATORY INFECTION,MULTIPLE MYELOMA Physical Exam Vital Signs: Temp Pulse Resp BP Pulse Ox 97.9 F 104 H 24 H 134/71 H 94 02/01/19 07:26 02/01/19 08:14 02/01/19 08:14 02/01/19 07:26 02/01/19 08:14 Intake & Output 01/31/19 02/01/19 02/02/19 06:59 06:59 06:59 Intake Total 3875 Balance 3875 Weight 82.3 kg General appearance: PRESENT: mild distress, obese Head exam: PRESENT: atraumatic Eye exam: PRESENT: PERRLA Mouth exam: PRESENT: moist, tongue midline Teeth exam: PRESENT: poor dentation Neck exam: ABSENT: carotid bruit, JVD, lymphadenopathy, thyromegaly Respiratory exam: PRESENT: tachypnea Cardiovascular exam: PRESENT: RRR. ABSENT: diastolic murmur, rubs, systolic murmur GI/Abdominal exam: PRESENT: normal bowel sounds, soft. ABSENT: distended, guarding, mass, organolmegaly, rebound, tenderness Rectal exam: PRESENT: deferred Neurological exam: PRESENT: alert, awake, oriented to person, oriented to place, oriented to time, oriented to situation, CN II-XII grossly intact. ABSENT: motor sensory deficit Psychiatric exam: PRESENT: appropriate affect, normal mood. ABSENT: homicidal ideation, suicidal ideation Results Laboratory Results: 02/01/19 04:21 02/01/19 04:21 01/31/19 01/31/19 01/31/19 09:49 09:49 09:49 WBC 2.7 L RBC 3.85 Hgb 12.7 Hct 36.2 MCV 94 MCH 33.0 MCHC 35.0 RDW 13.7 Plt Count 117 L Seg Neutrophils % 75.2 Lymphocytes % 7.0 L Monocytes % 17.4 H Eosinophils % 0.2 Basophils % 0.2 Absolute Neutrophils 2.1 Absolute Lymphocytes 0.2 L Absolute Monocytes 0.5 Absolute Eosinophils 0.0 Absolute Basophils 0.0 Sodium 137.3 Potassium 2.9 L* Chloride 99 Carbon Dioxide 27 Anion Gap 11 BUN 12 Creatinine 1.12 Est GFR ( Amer) > 60 Est GFR (Non-Af Amer) 50 L Glucose 137 H Lactic Acid 2.4 H Calcium 8.5 Magnesium Total Bilirubin 1.0 AST 26 ALT 26 Alkaline Phosphatase 96 Total Protein 7.4 Albumin 3.9 01/31/19 01/31/19 01/31/19 09:49 14:20 22:21 WBC RBC Hgb Hct MCV MCH MCHC RDW Plt Count Seg Neutrophils % Lymphocytes % Monocytes % Eosinophils % Basophils % Absolute Neutrophils Absolute Lymphocytes Absolute Monocytes Absolute Eosinophils Absolute Basophils Sodium Potassium Chloride Carbon Dioxide Anion Gap BUN Creatinine Est GFR ( Amer) Est GFR (Non-Af Amer) Glucose Lactic Acid 2.6 H 3.9 H Calcium Magnesium 1.5 L Total Bilirubin AST ALT Alkaline Phosphatase Total Protein Albumin 01/31/19 02/01/19 02/01/19 22:21 04:21 04:21 WBC 2.0 L RBC 3.33 L Hgb 10.8 L Hct 31.7 L MCV 95 MCH 32.4 MCHC 34.1 RDW 13.7 Plt Count 106 L Seg Neutrophils % Not Reportable Lymphocytes % Not Reportable Monocytes % Not Reportable Eosinophils % Not Reportable Basophils % Not Reportable Absolute Neutrophils Not Reportable Absolute Lymphocytes Not Reportable Absolute Monocytes Not Reportable Absolute Eosinophils Not Reportable Absolute Basophils Not Reportable Sodium 140.8 142.9 Potassium 3.5 L 3.4 L Chloride 106 111 H Carbon Dioxide 21 L 24 Anion Gap 14 8 BUN 11 12 Creatinine 0.83 0.83 Est GFR ( Amer) > 60 > 60 Est GFR (Non-Af Amer) > 60 > 60 Glucose 161 H 131 H Lactic Acid Calcium 7.8 L 7.3 L Magnesium 2.3 Total Bilirubin AST ALT Alkaline Phosphatase Total Protein Albumin 02/01/19 04:21 WBC RBC Hgb Hct MCV MCH MCHC RDW Plt Count Seg Neutrophils % Lymphocytes % Monocytes % Eosinophils % Basophils % Absolute Neutrophils Absolute Lymphocytes Absolute Monocytes Absolute Eosinophils Absolute Basophils Sodium Potassium Chloride Carbon Dioxide Anion Gap BUN Creatinine Est GFR ( Amer) Est GFR (Non-Af Amer) Glucose Lactic Acid 1.0 Calcium Magnesium Total Bilirubin AST ALT Alkaline Phosphatase Total Protein Albumin 01/31/19 01/31/19 09:49 09:49 Creatine Kinase 86 Troponin I 0.017 Impressions: Chest X-Ray 01/31/19 09:19 IMPRESSION: 1. Slight atelectasis or scarring at the left lung base. No acute findings. Assessment and Plan - Diagnosis (1) Bronchitis Is this a current diagnosis for this admission?: Yes Plan: No evidence of pneumonia on chest x-ray. She does have a low white blood cell count although borderline for neutropenia. I will start her on azithromycin as it is an excellent antibiotic for bronchitis. 02/01/2019 58-year-old female admitted for severe bronchitis failed outpatient treatment presently on Zithromax having the severe cough with productive sputum last night much improved today. Blood cultures sputum cultures are pending. T- max is 97.9. (2) Hypokalemia Is this a current diagnosis for this admission?: Yes Plan: The chemotherapy is primarily responsible. She will receive IV replacement and I will increase her oral dose of potassium chloride. 02/01/2019-patient admitted with hypokalemia receiving potassium supplementation latest potassium is 3.4. (3) Hypomagnesemia Is this a current diagnosis for this admission?: Yes Plan: She reports that this is an ongoing issue due to her chemotherapy. IV replacement and increase her oral dose. 02/01/2019-patient magnesium is 2.5 today hypomagnesemia resolved with IV supplementation. 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 However as she is on ongoing therapy with immunosuppression I did asked that neutropenic precautions be taken and a neutropenic diet to be started. I will defer to oncology if they feel that this is not necessary. 02/01/2019-patient has a leukopenia WBC count is 2000. Neutropenic precautions are implemented. Oncology on board. Chemotherapy medication is on hold. (5) Multiple myeloma Qualifiers: Multiple myeloma remission status: in remission Qualified Code(s): C90.01 - Multiple myeloma in remission Is this a current diagnosis for this admission?: Yes Plan: Continue her current medication. Oncology will see the patient. Because the chemotherapy is not on formulary I requested that the patient keep her medicine so that she may continue to take it uninterrupted. [id number]-old female with history of multiple myeloma on chemotherapy. Oncology consult was done plan is to hold the chemotherapy medication for now. (6) Cough Is this a current diagnosis for this admission?: Yes Plan: Antitussives as needed 02/01/2019-patient came in with persistent cough started on antitussives denies any cough this morning. (7) Shortness of breath Is this a current diagnosis for this admission?: Yes Plan: Likely related to the bronchitis and cough. No oxygen has been required. This should improve on its own. 02/01/2019-patient is shortness of breath on examination today to start on supplemental oxygen. (8) Obesity (BMI 30.0-34.9) Is this a current diagnosis for this admission?: No Plan: 02/01/2019-patient BMI is more than 34 diet exercise weight loss recommended. Dietary consult is going to be requested. - Time Time Spent with patient: 15-24 minutes Smoking Cessation Education: 3 to 10 minutes Medications reviewed and adjusted accordingly: Yes Anticipated discharge: Home
[2019-02-01] MEDS ORDERED: (PENDING PHARMACY ID) (Lenalidomide [Revlimid] 5 MG) PO SCH (10:00)
[2019-02-01] MEDS ORDERED: (PENDING PHARMACY ID) (Magnesium Oxide [Magnesium] 500 MG) PO SCH (10:00)
[2019-02-01] MEDS ORDERED: (PENDING PHARMACY ID) (Lansoprazole [Prevacid] 15 MG) PO SCH (10:00)
[2019-02-01] MEDS ORDERED: MAGNESIUM OXIDE 400 MG TABLET PO SCH (10:00)
[2019-02-01] MEDS ORDERED: POTASSIUM CHLORIDE 10 MEQ CAPSULE.ER PO SCH (10:00)
[2019-02-01] MEDS ORDERED: (PENDING PHARMACY ID) (Potassium Chloride [Klor-Con M20] 20 MEQ) PO SCH (10:00)
[2019-02-01] MEDS ORDERED: (PENDING PHARMACY ID) (Calcium Carbonate/Vitamin D3 [Calcium 600-Vit D3 800 Tablet] 1 TAB) PO SCH (10:00)
[2019-02-01] MEDS: ENOXAPARIN SODIUM INJ 40 MG/0.4 ML DISP.SYRIN SUBCUT SCH (10:02)
[2019-02-01] MEDS: CALCIUM CARBONATE 250 MG/VITAMIN D3 125 UNIT TABLET PO SCH (11:00)
[2019-02-01] MEDS: ASPIRIN 81 MG TABLET, ENT COATED PO SCH (11:00)
[2019-02-01] MEDS: AMLODIPINE BESYLATE 10 MG TABLET PO SCH (11:01)
[2019-02-01] MEDS: PANTOPRAZOLE SODIUM 20 MG TABLET.DR PO SCH (11:01)
[2019-02-01] MEDS: AZITHROMYCIN 500 MG in DEXTROSE 5%-WATER 250 ML IV SCH (11:08)
[2019-02-01 14:47] LABS: PATH REVIEW PATHOLOGIST REVIEWED
[2019-02-02] MEDS: IPRATROPIUM/ALBUTEROL 0.5-2.5 MG/3 ML AMPUL NEB SCH ×4 (02:16→21:59)
[2019-02-02] MEDS: POTASSIUM CHLORIDE 10 MEQ CAPSULE.ER PO SCH ×2 (05:19→17:11)
[2019-02-02 06:56] LABS: HEMATOCRIT 30.9 % (36.0-47.0); HEMOGLOBIN 10.7 g/dL (12.0-15.5); MEAN CORPUSCULAR HEMOGLOBIN 32.7 pg (27.0-33.4); MEAN CORPUSCULAR HGB CONC 34.6 g/dL (32.0-36.0); MEAN CORPUSCULAR VOLUME 94 fl (80-97); PLATELET COUNT 124 10^3/uL (150-450); RED BLOOD COUNT 3.28 10^6/uL (3.72-5.28); RED CELL DISTRIBUTION WIDTH 13.7 % (11.5-14.0); WHITE BLOOD COUNT 1.8 10^3/uL (4.0-10.5)
[2019-02-02 07:14] LABS: ALANINE AMINOTRANSFERASE 25 U/L (9-52); ALBUMIN 3.2 g/dL (3.5-5.0); ALKALINE PHOSPHATASE 72 U/L (38-126); ANION GAP 8 (5-19); ASPARTATE AMINO TRANSFERASE 31 U/L (14-36); BILIRUBIN,DIRECT 0.3 mg/dL (0.0-0.4); BILIRUBIN,TOTAL 0.7 mg/dL (0.2-1.3); BLOOD UREA NITROGEN 8 mg/dL (7-20); CALCIUM 7.6 mg/dL (8.4-10.2); CARBON DIOXIDE 26 mmol/L (22-30); CHLORIDE 107 mmol/L (98-107); GLUCOSE 98 mg/dL (75-110); SODIUM 140.6 mmol/L (137-145); TOTAL PROTEIN 6.2 g/dL (6.3-8.2)
[2019-02-02] MEDS ORDERED: POTASSIUM CHLORIDE 20 MEQ/50 ML RTU IV ONE (08:00)
[2019-02-02 08:16] LABS: ABSOLUTE LYMPHOCYTES# (MANUAL) 0.3 10^3/uL (0.5-4.7); ABSOLUTE MONOCYTES # (MANUAL) 0.2 10^3/uL (0.1-1.4); BAND NEUTROPHILS % (MANUAL) 8 % (3-5); BASOPHILS % (MANUAL) 0 % (0-2); EOSINOPHILS % (MANUAL) 12 % (0-6); LYMPHOCYTES % (MANUAL) 14 % (13-45); MONOCYTES % (MANUAL) 10 % (3-13); SEGMENTED NEUTROPHILS % (MAN) 56 % (42-78); TOTAL CELLS COUNTED 50
[2019-02-02 08:19] LABS: PLATELET COMMENT DECREASED; RBC MORPHOLOGY COMMENT NORMO-CYTIC/CHROMIC
[2019-02-02 08:42] LABS: IMMUNOGLOBULIN A 311 mg/dL (87-352); IMMUNOGLOBULIN G 1318 mg/dL (700-1600)
[2019-02-02] MEDS: ASPIRIN 81 MG TABLET, ENT COATED PO SCH (09:18)
[2019-02-02] MEDS: AMLODIPINE BESYLATE 10 MG TABLET PO SCH (09:18)
[2019-02-02] MEDS: ENOXAPARIN SODIUM INJ 40 MG/0.4 ML DISP.SYRIN SUBCUT SCH (09:19)
[2019-02-02] MEDS: PANTOPRAZOLE SODIUM 20 MG TABLET.DR PO SCH (09:19)
[2019-02-02] MEDS: CALCIUM CARBONATE 250 MG/VITAMIN D3 125 UNIT TABLET PO SCH (09:19)
[2019-02-02] MEDS: MAGNESIUM OXIDE 400 MG TABLET PO SCH ×3 (09:19→17:11)
[2019-02-02 09:31] LABS: IMMUNOGLOBULIN M 15 mg/dL (26-217)
[2019-02-02] MEDS: AZITHROMYCIN 500 MG in DEXTROSE 5%-WATER 250 ML IV SCH (11:26)
--- NOTE | 2019-02-02 13:02 | PDOC PROGRESS REPORT ---
Subjective Progress Note for:: 02/02/19 Subjective:: No acute events overnight, pt seems much better today Reason For Visit: HYPOKALEMIA,RESPIRATORY INFECTION,MULTIPLE MYELOMA Physical Exam Vital Signs: Temp Pulse Resp BP Pulse Ox 97.9 F 96 17 132/95 H 93 02/02/19 11:14 02/02/19 11:14 02/02/19 11:14 02/02/19 11:14 02/02/19 11:14 Intake & Output 02/01/19 02/02/19 02/03/19 06:59 06:59 06:59 Intake Total 3875 1170 200 Balance 3875 1170 200 Weight 82.3 kg 82.418 kg General appearance: PRESENT: no acute distress, well-developed, well-nourished Head exam: PRESENT: atraumatic, normocephalic Eye exam: PRESENT: conjunctiva pink, EOMI, PERRLA. ABSENT: scleral icterus Ear exam: PRESENT: normal external ear exam Mouth exam: PRESENT: moist, tongue midline Neck exam: ABSENT: carotid bruit, JVD, lymphadenopathy, thyromegaly Respiratory exam: PRESENT: clear to auscultation maxx. ABSENT: rales, rhonchi, wheezes Cardiovascular exam: PRESENT: RRR. ABSENT: diastolic murmur, rubs, systolic murmur Pulses: PRESENT: normal dorsalis pedis pul Vascular exam: PRESENT: normal capillary refill GI/Abdominal exam: PRESENT: normal bowel sounds, soft. ABSENT: distended, guarding, mass, organolmegaly, rebound, tenderness Rectal exam: PRESENT: deferred Extremities exam: PRESENT: full ROM. ABSENT: calf tenderness, clubbing, pedal edema Neurological exam: PRESENT: alert, awake, oriented to person, oriented to place, oriented to time, oriented to situation, CN II-XII grossly intact. ABSENT: motor sensory deficit Psychiatric exam: PRESENT: appropriate affect, normal mood. ABSENT: homicidal ideation, suicidal ideation Skin exam: PRESENT: dry, intact, warm. ABSENT: cyanosis, rash Results Laboratory Results: 02/02/19 05:34 02/02/19 05:34 02/01/19 02/01/19 02/02/19 15:50 21:30 05:34 WBC 1.8 L RBC 3.28 L Hgb 10.7 L Hct 30.9 L MCV 94 MCH 32.7 MCHC 34.6 RDW 13.7 Plt Count 124 L Seg Neutrophils % Not Reportable Lymphocytes % Not Reportable Monocytes % Not Reportable Eosinophils % Not Reportable Basophils % Not Reportable Absolute Neutrophils Not Reportable Absolute Lymphocytes Not Reportable Absolute Monocytes Not Reportable Absolute Eosinophils Not Reportable Absolute Basophils Not Reportable Sodium Potassium Chloride Carbon Dioxide Anion Gap BUN Creatinine Est GFR ( Amer) Est GFR (Non-Af Amer) Glucose Lactic Acid 2.1 3.4 H Calcium Magnesium Total Bilirubin AST ALT Alkaline Phosphatase Total Protein Albumin 02/02/19 05:34 WBC RBC Hgb Hct MCV MCH MCHC RDW Plt Count Seg Neutrophils % Lymphocytes % Monocytes % Eosinophils % Basophils % Absolute Neutrophils Absolute Lymphocytes Absolute Monocytes Absolute Eosinophils Absolute Basophils Sodium 140.6 Potassium 3.0 L* Chloride 107 Carbon Dioxide 26 Anion Gap 8 BUN 8 Creatinine 0.91 Est GFR ( Amer) > 60 Est GFR (Non-Af Amer) > 60 Glucose 98 Lactic Acid Calcium 7.6 L Magnesium 2.1 Total Bilirubin 0.7 AST 31 ALT 25 Alkaline Phosphatase 72 Total Protein 6.2 L Albumin 3.2 L 01/31/19 19:06 Sputum Gram Stain - Final 01/31/19 19:06 Sputum Sputum Culture - Final NORMAL DANIEL 01/31/19 01/31/19 09:49 09:49 Creatine Kinase 86 Troponin I 0.017 Impressions: Chest X-Ray 01/31/19 09:19 IMPRESSION: 1. Slight atelectasis or scarring at the left lung base. No acute findings. 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 (3) Multiple myeloma Qualifiers: Multiple myeloma remission status: in remission Qualified Code(s): C90.01 - Multiple myeloma in remission Is this a current diagnosis for this admission?: Yes Plan: stable overall, QUIGs reviewed and IgG is normal so pt will not need IVIG monthly as an outpt
[2019-02-02] MEDS: AZITHROMYCIN 250 MG TABLET PO SCH (14:13)
--- NOTE | 2019-02-02 15:24 | PDOC PROGRESS REPORT ---
Subjective Progress Note for:: 02/02/19 Subjective:: ANAM CLEMENT is a 58 year old female w/ known h/o recent URI, was seen by her PCP recently. She has had cough/SOB and chest congestion was treated w/ course of ZPAK but did not improve, SOB worsened and pt presented to ED was tachypnic, tachycardic and admitted for acute bronchitis, concern of pneumonia in post transplant somewhat immunocompromised pt. She is on atbx broad spec currently. Feeling a little better today, getting neb tx. Of note dx w/ MM in 02/2013, d iffuse dx, induction chemo w/ RVD followed by transplant 10/2013, since then stringent CR on maintenance revlimid. 02/02/2019. No acute events overnight. Comfortably sitting in chair enjoying her breakfast, cooperative for physical examination. Has any fever, chills, nausea, vomiting, diarrhea, constipation or any urinary symptoms. Eating of mild shortness of breath and cough. Reason For Visit: HYPOKALEMIA,RESPIRATORY INFECTION,MULTIPLE MYELOMA Physical Exam Vital Signs: Temp Pulse Resp BP Pulse Ox 97.9 F 86 16 132/95 H 93 02/02/19 11:14 02/02/19 14:00 02/02/19 14:00 02/02/19 11:14 02/02/19 11:14 Intake & Output 02/01/19 02/02/19 02/03/19 06:59 06:59 06:59 Intake Total 3875 1170 392 Balance 3875 1170 392 Weight 82.3 kg 82.418 kg General appearance: PRESENT: no acute distress, well-developed, well-nourished Head exam: PRESENT: atraumatic, normocephalic Eye exam: PRESENT: conjunctiva pink, EOMI, PERRLA. ABSENT: scleral icterus Ear exam: PRESENT: normal external ear exam Mouth exam: PRESENT: moist, tongue midline Neck exam: ABSENT: carotid bruit, JVD, lymphadenopathy, thyromegaly Respiratory exam: PRESENT: clear to auscultation maxx. ABSENT: rales, rhonchi, wheezes Cardiovascular exam: PRESENT: RRR. ABSENT: diastolic murmur, rubs, systolic mur mur Pulses: PRESENT: normal dorsalis pedis pul Vascular exam: PRESENT: normal capillary refill GI/Abdominal exam: PRESENT: normal bowel sounds, soft. ABSENT: distended, guarding, mass, organolmegaly, rebound, tenderness Rectal exam: PRESENT: deferred Extremities exam: PRESENT: full ROM. ABSENT: calf tenderness, clubbing, pedal edema Neurological exam: PRESENT: alert, awake, oriented to person, oriented to place, oriented to time, oriented to situation, CN II-XII grossly intact. ABSENT: motor sensory deficit Psychiatric exam: PRESENT: appropriate affect, normal mood. ABSENT: homicidal ideation, suicidal ideation Skin exam: PRESENT: dry, intact, warm. ABSENT: cyanosis, rash Results Laboratory Results: 02/02/19 05:34 02/02/19 05:34 02/01/19 02/01/19 02/02/19 15:50 21:30 05:34 WBC 1.8 L RBC 3.28 L Hgb 10.7 L Hct 30.9 L MCV 94 MCH 32.7 MCHC 34.6 RDW 13.7 Plt Count 124 L Seg Neutrophils % Not Reportable Lymphocytes % Not Reportable Monocytes % Not Reportable Eosinophils % Not Reportable Basophils % Not Reportable Absolute Neutrophils Not Reportable Absolute Lymphocytes Not Reportable Absolute Monocytes Not Reportable Absolute Eosinophils Not Reportable Absolute Basophils Not Reportable Sodium Potassium Chloride Carbon Dioxide Anion Gap BUN Creatinine Est GFR ( Amer) Est GFR (Non-Af Amer) Glucose Lactic Acid 2.1 3.4 H Calcium Magnesium Total Bilirubin AST ALT Alkaline Phosphatase Total Protein Albumin 02/02/19 05:34 WBC RBC Hgb Hct MCV MCH MCHC RDW Plt Count Seg Neutrophils % Lymphocytes % Monocytes % Eosinophils % Basophils % Absolute Neutrophils Absolute Lymphocytes Absolute Monocytes Absolute Eosinophils Absolute Basophils Sodium 140.6 Potassium 3.0 L* Chloride 107 Carbon Dioxide 26 Anion Gap 8 BUN 8 Creatinine 0.91 Est GFR ( Amer) > 60 Est GFR (Non-Af Amer) > 60 Glucose 98 Lactic Acid Calcium 7.6 L Magnesium 2.1 Total Bilirubin 0.7 AST 31 ALT 25 Alkaline Phosphatase 72 Total Protein 6.2 L Albumin 3.2 L 01/31/19 19:06 Sputum Gram Stain - Final 01/31/19 19:06 Sputum Sputum Culture - Final NORMAL DANILE 01/31/19 01/31/19 09:49 09:49 Creatine Kinase 86 Troponin I 0.017 Impressions: Chest X-Ray 01/31/19 09:19 IMPRESSION: 1. Slight atelectasis or scarring at the left lung base. No acute findings. Assessment and Plan - Diagnosis (1) Hypokalemia Is this a current diagnosis for this admission?: Yes Plan: History of chronic electrolyte abnormalities likely due to chemotherapy. Resume supplemental magnesium and potassium. Place as needed. BMP tomorrow. 02/02/2019: Sodium 140, potassium 3.0, bicarb 26, creatinine 0.9, (2) Thrombocytopenia Is this a current diagnosis for this admission?: No Plan: Likely due to chemotherapy. LFTs within normal limits. Daily H&H. Monitor for any sign of bleeding. Hold DVT prophylaxis if of continued bleeding or platelets less than 50,000. Encourage ambulation. (3) Bronchitis Is this a current diagnosis for this admission?: Yes Plan: Negative chest x-ray on admission. Day 2/4 of azithromycin. Received 1 day of 500 IV azithromycin on admission. Switch to p.o. 250 mg daily to complete a total of 4 days. Cultures negative so far. 02/02/2019: SBP 392872, T-max 97.9, pulse 80s, SPO2 93% RA.WBC 1.8, hemoglobin 10.7, platelets 124. Sodium 140, potassium 3.0, bicarb 26, creatinine 0.9, (4) Hypomagnesemia Is this a current diagnosis for this admission?: Yes Plan: As per problem #2. (5) Leukopenia due to antineoplastic chemotherapy Is this a current diagnosis for this admission?: Yes Plan: Most likely due to ongoing chemotherapy. 02/02/2019: SBP 049549, T-max 97.9, pulse 80s, SPO2 93% RA. WBC 1.8, hemoglobin 10.7, platelets 124. Off of neutropenic precaution as per oncology recommendation. Daily CBC, monitor vitals. (6) Multiple myeloma Qualifiers: Multiple myeloma remission status: in remission Qualified Code(s): C90.01 - Multiple myeloma in remission Is this a current diagnosis for this admission?: Yes Plan: In remission. IgA 311, IgG 1318, IgM 15. Calcium and kidney function WNL. Restart home meds. Oncology board. Recommendations noted. Recommending outpatient follow-up. (7) Obesity (BMI 30.0-34.9) Is this a current diagnosis for this admission?: No Plan: Diet and lifestyle modification recommended.
[2019-02-03] MEDS: IPRATROPIUM/ALBUTEROL 0.5-2.5 MG/3 ML AMPUL NEB SCH ×3 (01:14→13:56)
[2019-02-03] MEDS: MAGNESIUM OXIDE 400 MG TABLET PO SCH ×3 (08:00→18:04)
[2019-02-03 08:03] LABS: ABSOLUTE EOSINOPHILS # (AUTO) 0.1 10^3/uL (0.0-0.6); ABSOLUTE LYMPHOCYTES (AUTO) 0.5 10^3/uL (0.5-4.7); ABSOLUTE MONOCYTES (AUTO) 0.4 10^3/uL (0.1-1.4); ABSOLUTE NEUT (AUTO) 1.3 10^3/uL (1.7-8.2); BASOPHILS % (AUTO) 1.5 % (0-2); EOSINOPHILS % (AUTO) 4.3 % (0-6); HEMATOCRIT 31.3 % (36.0-47.0); HEMOGLOBIN 10.6 g/dL (12.0-15.5); LYMPHOCYTES % (AUTO) 19.2 % (13-45); MEAN CORPUSCULAR HEMOGLOBIN 32.5 pg (27.0-33.4); MEAN CORPUSCULAR VOLUME 96 fl (80-97); MONOCYTES % (AUTO) 18.5 % (3-13); RED BLOOD COUNT 3.27 10^6/uL (3.72-5.28); RED CELL DISTRIBUTION WIDTH 13.7 % (11.5-14.0); SEGMENTED NEUTROPHILS % (AUTO) 56.5 % (42-78); TOTAL CELLS COUNTED % (AUTO) 100 %; WHITE BLOOD COUNT 2.4 10^3/uL (4.0-10.5)
[2019-02-03 08:24] LABS: ANION GAP 10 (5-19); BLOOD UREA NITROGEN 6 mg/dL (7-20); CALCIUM 8.3 mg/dL (8.4-10.2); CARBON DIOXIDE 23 mmol/L (22-30); CHLORIDE 109 mmol/L (98-107); GLUCOSE 98 mg/dL (75-110); POTASSIUM 3.1 mmol/L (3.6-5.0); SODIUM 142.4 mmol/L (137-145)
--- NOTE | 2019-02-03 08:28 | PDOC PROGRESS REPORT ---
Subjective Progress Note for:: 02/03/19 Subjective:: Patient looks good today, however white count is slightly lower, still not neutropenic, told patient to hold Revlimid whenever she is ready for discharge per hospitalist team. She is going to see me next week on 02/09. Reason For Visit: HYPOKALEMIA,RESPIRATORY INFECTION,MULTIPLE MYELOMA Physical Exam Vital Signs: Temp Pulse Resp BP Pulse Ox 97.8 F 80 18 147/72 H 96 02/02/19 23:55 02/03/19 01:15 02/03/19 01:15 02/02/19 23:55 02/03/19 01:15 Intake & Output 02/02/19 02/03/19 02/04/19 06:59 06:59 06:59 Intake Total 1170 1492 Balance 1170 1492 Weight 82.418 kg 83 kg General appearance: PRESENT: no acute distress, well-developed, well-nourished Head exam: PRESENT: atraumatic, normocephalic Eye exam: PRESENT: conjunctiva pink, EOMI, PERRLA. ABSENT: scleral icterus Ear exam: PRESENT: normal external ear exam Mouth exam: PRESENT: moist, tongue midline Neck exam: ABSENT: carotid bruit, JVD, lymphadenopathy, thyromegaly Respiratory exam: PRESENT: clear to auscultation maxx. ABSENT: rales, rhonchi, wheezes Cardiovascular exam: PRESENT: RRR. ABSENT: diastolic murmur, rubs, systolic murmur Pulses: PRESENT: normal dorsalis pedis pul Vascular exam: PRESENT: normal capillary refill GI/Abdominal exam: PRESENT: normal bowel sounds, soft. ABSENT: distended, guarding, mass, organolmegaly, rebound, tenderness Rectal exam: PRESENT: deferred Extremities exam: PRESENT: full ROM. ABSENT: calf tenderness, clubbing, pedal edema Neurological exam: PRESENT: alert, awake, oriented to person, oriented to place, oriented to time, oriented to situation, CN II-XII grossly intact. ABSENT: motor sensory deficit Psychiatric exam: PRESENT: appropriate affect, normal mood. ABSENT: homicidal ideation, suicidal ideation Skin exam: PRESENT: dry, intact, warm. ABSENT: cyanosis, rash Results Laboratory Results: 01/31/19 19:06 Sputum Gram Stain - Final 01/31/19 19:06 Sputum Sputum Culture - Final NORMAL DANIEL 01/31/19 01/31/19 09:49 09:49 Creatine Kinase 86 Troponin I 0.017 Impressions: Chest X-Ray 01/31/19 09:19 IMPRESSION: 1. Slight atelectasis or scarring at the left lung base. No acute findings. Assessment & Plan - Diagnosis (1) Bronchitis Is this a current diagnosis for this admission?: Yes Plan: Continue antibiotics per hospitalist team 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 Is this a current diagnosis for this admission?: Yes Plan: Decreased, hold Revlimid until this resolves (3) Multiple myeloma Qualifiers: Multiple myeloma remission status: in remission Qualified Code(s): C90.01 - Multiple myeloma in remission Is this a current diagnosis for this admission?: Yes Plan: Holding therapy until patient sees me next week
[2019-02-03 08:33] LABS: PLATELET COUNT 138 10^3/uL (150-450)
[2019-02-03] MEDS ORDERED: POTASSIUM CHLORIDE 20 MEQ PACKET PO ONE (08:40)
[2019-02-03] MEDS: ASPIRIN 81 MG TABLET, ENT COATED PO SCH (10:06)
[2019-02-03] MEDS: PANTOPRAZOLE SODIUM 20 MG TABLET.DR PO SCH (10:06)
[2019-02-03] MEDS: CALCIUM CARBONATE 250 MG/VITAMIN D3 125 UNIT TABLET PO SCH (10:06)
[2019-02-03] MEDS: AMLODIPINE BESYLATE 10 MG TABLET PO SCH (10:06)
[2019-02-03] MEDS: AZITHROMYCIN 250 MG TABLET PO SCH (10:07)
[2019-02-03] MEDS: POTASSIUM CHLORIDE 10 MEQ CAPSULE.ER PO SCH ×2 (10:07→18:04)
[2019-02-03] MEDS: ENOXAPARIN SODIUM INJ 40 MG/0.4 ML DISP.SYRIN SUBCUT SCH (10:10)
[2019-02-03 14:25] LABS: ANION GAP 9 (5-19); BLOOD UREA NITROGEN 7 mg/dL (7-20); CARBON DIOXIDE 26 mmol/L (22-30); CHLORIDE 109 mmol/L (98-107); GLUCOSE 108 mg/dL (75-110); POTASSIUM 3.9 mmol/L (3.6-5.0); SODIUM 143.7 mmol/L (137-145)
[2019-02-03 17:31] VITALS: BP 140/60
--- NOTE | 2019-02-18 17:32 | PDOC DISCHARGE SUMMARY ---
General - Admit/Disc Date/PCP Admission Date/Primary Care Provider: 01/31/19 14:01 NARDA MODI MD Discharge Date: 02/11/19 - Discharge Diagnosis (1) Hypokalemia Is this a current diagnosis for this admission?: Yes (2) Thrombocytopenia Is this a current diagnosis for this admission?: Yes (3) Bronchitis Is this a current diagnosis for this admission?: Yes (4) Hypomagnesemia Is this a current diagnosis for this admission?: Yes (5) Leukopenia due to antineoplastic chemotherapy Is this a current diagnosis for this admission?: Yes (6) Multiple myeloma Is this a current diagnosis for this admission?: Yes (7) Obesity (BMI 30.0-34.9) Is this a current diagnosis for this admission?: Yes - Additional Information Resuscitation Status: Full Code Discharge Diet: As Tolerated Discharge Activity: Activity As Tolerated, Balance Activity w/Rest Prescriptions: Azithromycin [Zithromax 250 mg Tablet] 250 mg PO DAILY 3 Days #3 tablet Potassium Chloride [Klor-Con M20] 40 meq PO BID 30 Days #60 tab.er.prt Home Medications: Albuterol Sulfate [Proair HFA Inhalation Aerosol 8.5 gm MDI] 1 puff IH Q4HP PRN 01/31/19 Amlodipine Besylate [Norvasc 10 mg Tablet] 10 mg PO DAILY 01/31/19 Aspirin [Adult Low Dose Aspirin EC] 81 mg PO DAILY 01/31/19 Calcium Carbonate/Vitamin D3 [Calcium 600-Vit D3 800 Tablet] 1 tab PO DAILY 01/31/19 Lansoprazole [Prevacid] 15 mg PO DAILY 01/31/19 Lenalidomide [Revlimid] 5 mg PO DAILY 01/31/19 Magnesium Oxide [Magnesium] 500 mg PO DAILY 01/31/19 Multivitamin [Daily Multiple Vitamin] 1 tab PO DAILY 01/31/19 Oxycodone HCl [Oxycodone HCl 10 MG Tablet] 10 mg PO BIDP PRN 01/31/19 Azithromycin [Zithromax 250 mg Tablet] 250 mg PO DAILY 3 Days #3 tablet 02/03/19 Azithromycin [Zithromax 250 mg Tablet] 250 mg PO DAILY 3 Days #3 tablet 02/03/19 Potassium Chloride [Klor-Con M20] 40 meq PO BID 30 Days #60 tab.er.prt 06/06/19 History of Present Illness History of Present Illness: ROBE CLEMENT is a 58 year old female w/ known h/o recent URI, was seen by her PCP recently. She has had cough/SOB and chest congestion was treated w/ course of ZPAK but did not improve, SOB worsened and pt presented to ED was tachypnic, tachycardic and admitted for acute bronchitis, concern of pneumonia in post transplant somewhat immunocompromised pt. She is on atbx broad spec currently. Feeling a little better today, getting neb tx. Of note dx w/ MM in 02/2013, diffuse dx, induction chemo w/ RVD followed by transplant 10/2013, since then stringent CR on maintenance revlimid. 02/02/2019. No acute events overnight. Comfortably sitting in chair enjoying her breakfast, cooperative for physical examination. Has any fever, chills, nausea, vomiting, diarrhea, constipation or any urinary symptoms. Eating of mild shortness of breath and cough. Hospital Course Hospital Course: (1) Hypokalemia History of chronic electrolyte abnormalities likely due to chemotherapy. Resume supplemental magnesium and potassium. Daily BMP and electrolytes replaced as needed. Electrolytes WNL on the day of discharge. Was discharged on supplemental potassium. (2) Thrombocytopenia Likely due to chemotherapy. LFTs within normal limits. Daily H&H. Monitored for any sign of bleeding. Hold DVT prophylaxis if of continued bleeding or platelets less than 50,000. Encourage ambulation. (3) Bronchitis Negative chest x-ray on admission. Started on azithromycin. Received 2 doses and patient. Was discharged to complete 4 days of azithromycin. Cultures came back negative. (4) Hypomagnesemia Replaced as needed. Magnesium level WNL on the day of discharge. (5) Leukopenia due to antineoplastic chemotherapy Most likely due to ongoing chemotherapy. Initially was started on neutropenic precaution which was stopped as per oncology recommendation. Daily CBC (6) Multiple myeloma In remission. IgA 311, IgG 1318, IgM 15. Calcium and kidney function WNL. Restarted on home meds. Oncology followed. Recommendations noted. Outpatient oncology follow-up. (7) Obesity (BMI 30.0-34.9) Diet and lifestyle modification recommended. Physical Exam Vital Signs: Temp Pulse Resp BP Pulse Ox 97.9 F 80 16 140/60 H 98 02/03/19 18:20 02/03/19 18:20 02/03/19 18:20 02/03/19 18:20 02/03/19 18:20 General appearance: PRESENT: obese Head exam: PRESENT: atraumatic, normocephalic Respiratory exam: PRESENT: clear to auscultation maxx. ABSENT: rales, rhonchi, wheezes Cardiovascular exam: PRESENT: RRR. ABSENT: diastolic murmur, rubs, systolic murmur Pulses: PRESENT: normal dorsalis pedis pul GI/Abdominal exam: PRESENT: normal bowel sounds, soft. ABSENT: distended, guarding, mass, organolmegaly, rebound, tenderness Extremities exam: PRESENT: full ROM. ABSENT: calf tenderness, clubbing, pedal edema Neurological exam: PRESENT: alert, awake, oriented to person, oriented to place, oriented to time, oriented to situation, CN II-XII grossly intact. ABSENT: motor sensory deficit Skin exam: PRESENT: dry, intact, warm. ABSENT: cyanosis, rash Results Laboratory Results: 02/03/19 06:50 02/03/19 13:41 01/31/19 01/31/19 09:49 09:49 Creatine Kinase 86 Troponin I 0.017 Impressions: Chest X-Ray 01/31/19 09:19 IMPRESSION: 1. Slight atelectasis or scarring at the left lung base. No acute findings. Qualifiers - * PATIENT BEING DISCHARGED WITH ANY OF THE FOLLOWING DIAGNOSIS: No Acute Heart Failure - Is this a Heart Failure Patient?: No LVEF < 40%?: No- if no continue to question #3
== END 2019-02-03 18:46 | disposition home or self-care (01) | DRG 202 ==
LOC: ER 07:27 → EH 14:01 → 4N 15:38
PROVIDERS: ADMIT Hospitalist; ATTEND Hospitalist
DX: J20.9 Acute bronchitis, unspecified (principal); C90.00 Multiple myeloma not having achieved remission; Z94.84 Stem cells transplant status; E83.42 Hypomagnesemia; E87.6 Hypokalemia; T45.1X5A Adverse effect of antineoplastic and immunosuppressive drugs, initial encounter; D69.59 Other secondary thrombocytopenia; D70.1 Agranulocytosis secondary to cancer chemotherapy; I10 Essential (primary) hypertension; G56.91 Unspecified mononeuropathy of right upper limb; Y92.098 Other place in other non-institutional residence as the place of occurrence of the external cause; Z79.899 Other long term (current) drug therapy; Z79.82 Long term (current) use of aspirin; Z79.51 Long term (current) use of inhaled steroids
CPT/HCPCS: 36415; 71046; 80048; 80053; 82550; 82784; 83605; 83735; 84484; 85025; 87040; 87070; 87205; 93005; 93010; 94640; 96365; 96366; 99285; J0456; J1650; J3475; J3480; J3490; J7030; J7060; J7512; J7620

== ENCOUNTER → 2019-04-08 | Outpatient (CLI) | payer MEDICAID, MEDICARE ==
--- NOTE | 2019-04-10 15:02 | WOMENS IMAGING REPORT ---
EXAM DESCRIPTION: BILAT SCREENING MAMMO W/CAD COMPLETED DATE/TIME: 04/08/2019 1:21 pm REASON FOR STUDY: (Z12.31)ENCNTR SCREEN MAMMOGRAM FOR MALIGNANT NEOPLASM OF BREAST Z12.31 ENCNTR SC REEN MAMMOGRAM FOR MALIGNANT NEOPLASM OF FLAKITO COMPARISON: 2013 to 2017 EXAM PARAMETERS: Standard craniocaudal and mediolateral oblique views of each breast recorded using digital acquisition. Read with the assistance of CAD. .[facility] - [employer] Dexigraph Operator Version 9.2 LIMITATIONS: None. FINDINGS: No suspicious masses, suspicious calcifications or architectural distortion. No areas of c oncern. IMPRESSION: Negative MAMMOGRAM. BIRADS 1 BREAST DENSITY: b. There are scattered areas of fibroglandular density. BIRAD: ASSESSMENT: 1 NEGATIVE RECOMMENDATION: ROUTINE SCREENING COMMENT: The patient has been notified of the results by letter per MQSA requirements. Additional no tification policies are in place for contacting patient with suspicious or incomplete findings. Quality ID #[id number]: The [employer] recommends an annual screening mammogram for women aged 40 years or over. This facility utilizes a reminder system to ensure that all patients receive reminder letters, and/or direct phone calls for appointments. This includes reminders for routine scr eening mammograms, diagnostic mammograms, or other Breast Imaging Interventions when appropriate. Th is patient will be placed in the appropriate reminder system. TECHNICAL DOCUMENTATION: FINDING NUMBER: (1) ASSESSMENT: (1) JOB ID: [id number] [employer]- All Rights Reserved Reading location - IP/workstation name: [email or web address]
== END ==
LOC: WI 12:54
PROVIDERS: ATTEND Family Medicine
DX: Z12.31 Encounter for screening mammogram for malignant neoplasm of breast (principal)
CPT/HCPCS: 77067

== ENCOUNTER 2019-07-15 10:38 | Inpatient (IN) | payer MEDICARE ==
[2019-07-15] MEDS ORDERED: NORMAL SALINE 1000 ML 1,000 ML IV ONE (11:59)
--- NOTE | 2019-07-15 12:02 | ER Document Report ---
ED Medical Screen (RME) - General Chief Complaint: Flu Symptoms Stated Complaint: SHORTNESS OF BREATH Time Seen by Provider: 07/15/19 11:58 Primary Care Provider: NARDA MODI MD [Primary Care Provider] - Follow up as needed Notes: 59-year-old female with multiple myeloma in remission on maintenance chemotherapy presents to the emergency department from her PMD with several complaints: Patient has been short of breath for 2 days and started having subjective fevers, diarrhea, nausea with no vomiting. Patient is taken Tylenol only for her symptoms. PMD is concerned for dehydration. Dr. Barron maxine his oncologist. Exam: Nontoxic-appearing, lungs clear to auscultation all smith, regular cardiac rate and rhythm S1-S2 heard I have greeted and performed a rapid initial assessment of this patient. A comprehensive ED assessment and evaluation of the patient, analysis of test results and completion of medical decision making process will be conducted by an additional ED providers. TRAVEL OUTSIDE OF THE [place] IN LAST 30 DAYS: No - Related Data Allergies/Adverse Reactions: penicillin V [Penicillin V] Allergy (Unknown, Verified 01/31/19 07:28) vancomycin Allergy (Unknown, Verified 01/31/19 07:28) Pruritis codeine [Codeine] Allergy (Verified 01/31/19 07:28) Past Medical History - Past Medical History Cardiac Medical History: Reports: Hx Hypertension Denies: Hx Coronary Artery Disease, Hx Heart Attack Pulmonary Medical History: Reports: Hx Bronchitis Denies: Hx Asthma, Hx COPD, Hx Pneumonia Neurological Medical History: Denies: Hx Cerebrovascular Accident, Hx Seizures Renal/ Medical History: Denies: Hx Peritoneal Dialysis GI Medical History: Denies: Hx Cirrhosis, Hx Crohn's Disease, Hx Ulcerative Colitis Musculoskeltal Medical History: Denies Hx Arthritis Psychiatric Medical History: Denies: Hx Depression Past Surgical History: Reports: Other - Stem cell transplant. Denies: Hx Hysterectomy - Immunizations Hx Diphtheria, Pertussis, Tetanus Vaccination: Yes Physical Exam - Vital signs Vitals: Temp Pulse Resp BP Pulse Ox 97.3 F 66 20 128/94 H 97 07/15/19 11:17 07/15/19 11:17 07/15/19 11:17 07/15/19 11:17 07/15/19 11:17 Course - Vital Signs Vital signs: Temp Pulse Resp BP Pulse Ox 97.3 F 66 20 128/94 H 97 07/15/19 11:17 07/15/19 11:17 07/15/19 11:17 07/15/19 11:17 07/15/19 11:17 Doctor's Discharge - Discharge Referrals: NARDA OMDI MD [Primary Care Provider] - Follow up as needed
[2019-07-15 13:21] LABS: A TYPE INFLUENZA AG NEGATIVE (NEGATIVE)
[2019-07-15 13:21] LABS: HEMATOCRIT 43.7 % (36.0-47.0); HEMOGLOBIN 15.2 g/dL (12.0-15.5); MEAN CORPUSCULAR HEMOGLOBIN 32.7 pg (27.0-33.4); MEAN CORPUSCULAR HGB CONC 34.7 g/dL (32.0-36.0); MEAN CORPUSCULAR VOLUME 94 fl (80-97); PLATELET COUNT 206 10^3/uL (150-450); RED BLOOD COUNT 4.65 10^6/uL (3.72-5.28); RED CELL DISTRIBUTION WIDTH 14.7 % (11.5-14.0)
[2019-07-15 13:22] LABS: B INFLUENZA AG NEGATIVE (NEGATIVE)
[2019-07-15 13:43] LABS: ALBUMIN 4.8 g/dL (3.5-5.0); ALKALINE PHOSPHATASE 84 U/L (38-126); ASPARTATE AMINO TRANSFERASE 22 U/L (14-36); BILIRUBIN,DIRECT 0.2 mg/dL (0.0-0.4); BILIRUBIN,TOTAL 0.7 mg/dL (0.2-1.3); BLOOD UREA NITROGEN 23 mg/dL (7-20); CALCIUM 10.1 mg/dL (8.4-10.2); CARBON DIOXIDE 14 mmol/L (22-30); CHLORIDE 104 mmol/L (98-107); GLUCOSE 175 mg/dL (75-110); TOTAL PROTEIN 9.5 g/dL (6.3-8.2)
[2019-07-15] MEDS ORDERED: METHYLPREDNISOLONE INJ 125 MG/2 ML SDV IV ONE (13:50)
[2019-07-15] MEDS ORDERED: IPRATROPIUM/ALBUTEROL 0.5-2.5 MG/3 ML AMPUL NEB ONE (13:50)
--- NOTE | 2019-07-15 13:51 | ER Document Report ---
ED General - General Chief Complaint: Flu Symptoms Stated Complaint: SHORTNESS OF BREATH Time Seen by Provider: 07/15/19 11:58 Primary Care Provider: NARDA MODI MD [Primary Care Provider] - Follow up as needed TRAVEL OUTSIDE OF THE [place] IN LAST 30 DAYS: No - HPI Notes: Patient is a 59-year-old female with history of multiple myeloma in remission and on maintenance chemotherapy presents for having shortness of breath with exertion for the past couple days and having subjective fever, diarrhea, nausea with no vomiting. Patient states that she has had nasal congestion and discharge as well. She has taken some Tylenol for symptoms. Her family doctor is most concerned about dehydration at this point. She is otherwise able to eat and drink without difficulty, but does have decreased p.o. intake. She is urinating normally. Denies any prolonged immobilization, distance travel, recent surgery/trauma, hormone use, or previous DVT/PE. No history of CAD, CVA or TIA. Denies any headache, fever, head injury, neck pain, changes in vision/speech/mentation/hearing, sore throat, chest pain, palpitations, syncope, cough, wheeze, dyspnea, abdominal pain, vomiting, urinary retention, dysuria, hematuria, loss of control of bowel or bladder, numbness/tingling, saddle anesthesia, muscle paralysis/weakness, or rash. - Related Data Allergies/Adverse Reactions: penicillin V [Penicillin V] Allergy (Unknown, Verified 01/31/19 07:28) vancomycin Allergy (Unknown, Verified 01/31/19 07:28) Pruritis codeine [Codeine] Allergy (Verified 01/31/19 07:28) Past Medical History - Social History Smoking Status: Former Smoker Family History: CAD - With congestive heart failure, Other - Dementia, skin cancer, kidney failure Patient has suicidal ideation: No Patient has homicidal ideation: No - Past Medical History Cardiac Medical History: Reports: Hx Hypertension Denies: Hx Coronary Artery Disease, Hx Heart Attack Pulmonary Medical History: Reports: Hx Bronchitis Denies: Hx Asthma, Hx COPD, Hx Pneumonia Neurological Medical History: Denies: Hx Cerebrovascular Accident, Hx Seizures Renal/ Medical History: Denies: Hx Peritoneal Dialysis GI Medical History: Denies: Hx Cirrhosis, Hx Crohn's Disease, Hx Ulcerative Colitis Musculoskeletal Medical History: Denies Hx Arthritis Psychiatric Medical History: Denies: Hx Depression Past Surgical History: Reports: Other - Stem cell transplant. Denies: Hx Hysterectomy - Immunizations Hx Diphtheria, Pertussis, Tetanus Vaccination: Yes Review of Systems - Review of Systems -: Yes All other systems reviewed and negative Physical Exam - Vital signs Vitals: Temp Pulse Resp BP Pulse Ox 97.3 F 66 20 128/94 H 97 07/15/19 11:17 07/15/19 11:17 07/15/19 11:17 07/15/19 11:17 07/15/19 11:17 - Notes Notes: PHYSICAL EXAMINATION: GENERAL: Well-appearing, well-nourished and in no acute distress. A&Ox4. Answers questions appropriately. Moves comfortably w/o notable distress HEAD: Atraumatic, normocephalic. EYES: Pupils equal round and reactive to light, extraocular movements intact, sclera anicteric, conjunctiva are normal. ENT: EAC clear b/l. TM's intact b/l without erythema, fluid, or perforation. Nares patent and with clear discharge. oropharynx no erythema without exudates. No tonsilar hypertrophy without erythema or exudate. No palatine shift. Uvula midline. No tongue protrusion. No drooling, hoarseness, or airway compromise. Moist mucous membranes. No sinus tenderness. NECK: Normal range of motion, supple without lymphadenopathy. No rigidity/meni ngismus. LUNGS: scant wheeze LLL. no retractions. HEART: Regular rate and rhythm without murmurs, rubs, gallops. ABDOMEN: Soft, nontender, nondistended abdomen. No guarding, no rebound. Normal bowel sounds present. No CVA tenderness bilaterally. NEUROLOGICAL: Normal speech, normal gait. PSYCH: Normal mood, normal affect. SKIN: Warm, Dry, normal turgor, no rashes or lesions noted. Course - Re-evaluation Re-evalutation: 07/15/19 15:28 Patient is an afebrile, well-hydrated, 59-year-old female who presents with hypokalemia and acute kidney injury. Vitals are currently acceptable without significant tachycardia, tachypnea, or hypoxia. PE is otherwise unremarkable. Patient is nontoxic-appearing and is tolerating p.o. without difficulty. Patient has received potassium repletion through IV n.p.o. She is also received some fluids. Work-up otherwise acceptable at this time. I did speak with Don Day PA-C who is accepted patient for admission. - Vital Signs Vital signs: Temp Pulse Resp BP Pulse Ox 97.3 F 66 20 128/94 H 97 07/15/19 11:17 07/15/19 11:17 07/15/19 11:17 07/15/19 11:17 07/15/19 11:17 - Laboratory Result Diagrams: 07/15/19 13:00 07/15/19 13:00 Laboratory results interpreted by me: 07/15/19 07/15/19 07/15/19 13:00 13:00 13:00 RDW 14.7 H Band Neutrophils % 9 H Monocytes % (Manual) 18 H Potassium 2.7 L* Carbon Dioxide 14 L Anion Gap 23 H BUN 23 H Creatinine 2.95 H Est GFR ( Amer) 20 L Est GFR (MDRD) Non-Af 16 L Glucose 175 H NT-Pro-B Natriuret Pep 382 H Total Protein 9.5 H Discharge - Discharge Clinical Impression: Hypokalemia, ANGELINA (acute kidney injury), Dehydration Condition: Stable Disposition: ADMITTED INPATIENT Admitting Provider: Karen (Hospitalist) - Titi Weldon PA-C Unit Admitted: Medical Floor Referrals: NARDA MDOI MD [Primary Care Provider] - Follow up as needed
[2019-07-15 13:52] LABS: ANION GAP 23 (5-19)
[2019-07-15 13:56] LABS: POTASSIUM 2.7 mmol/L (3.6-5.0)
--- NOTE | 2019-07-15 14:07 | RADIOLOGY REPORT (SQ) ---
EXAM DESCRIPTION: CHEST 2 VIEWS COMPLETED DATE/TIME: 07/15/2019 1:55 pm REASON FOR STUDY: sob COMPARISON: 01/31/2019 EXAM PARAMETERS: NUMBER OF VIEWS: two views TECHNIQUE: Digital Frontal and Lateral radiographic views of the chest acquired. RADIATION DOSE: NA LIMITATIONS: none FINDINGS: LUNGS AND PLEURA: No opacities, masses or pneumothorax. No pleural effusion. MEDIASTINUM AND HILAR STRUCTURES: No masses or contour abnormalities. HEART AND VASCULAR STRUCTURES: Heart normal size. No evidence for failure. BONES: Stable slight anterior wedging of L1. HARDWARE: None in the chest. OTHER: No other significant finding. IMPRESSION: NO ACUTE RADIOGRAPHIC FINDING IN THE CHEST. TECHNICAL DOCUMENTATION: JOB ID: [id number] [employer]- All Rights Reserved Reading location - IP/workstation name: [email or web address]
[2019-07-15 14:09] LABS: ABSOLUTE LYMPHOCYTES# (MANUAL) 1.1 10^3/uL (0.5-4.7); ABSOLUTE MONOCYTES # (MANUAL) 0.7 10^3/uL (0.1-1.4); ANISOCYTOSIS SLIGHT; BAND NEUTROPHILS % (MANUAL) 9 % (3-5); BASOPHILS % (MANUAL) 0 % (0-2); EOSINOPHILS % (MANUAL) 0 % (0-6); LYMPHOCYTES % (MANUAL) 27 % (13-45); MONOCYTES % (MANUAL) 18 % (3-13); SEGMENTED NEUTROPHILS % (MAN) 46 % (42-78); TOTAL CELLS COUNTED 100
[2019-07-15 14:10] LABS: PLATELET COMMENT ADEQUATE; PLATELET GIANT PRESENT
[2019-07-15] MEDS ORDERED: POTASSIUM CHLORIDE 10 MEQ CAPSULE.ER PO ONE (14:35)
[2019-07-15] MEDS ORDERED: POTASSI CL 20 MEQ/50 ML RIDER 20 MEQ/50 ML RTUPB IV ONE (14:37)
[2019-07-15 14:47] LABS: NT PRO BNP 382 pg/mL (<125)
[2019-07-15 14:51] LABS: TROPONIN I < 0.012 ng/mL
[2019-07-15] MEDS ORDERED: ACETAMINOPHEN 325 MG TABLET PO PRN (15:57)
[2019-07-15] MEDS ORDERED: ONDANSETRON 4 MG TAB.RAPDIS PO PRN (15:57)
[2019-07-15] MEDS ORDERED: OXYCODONE-ACETAMINOPHEN 5-325 MG TABLET PO PRN (15:57)
--- NOTE | 2019-07-15 16:34 | PDOC H&P ---
History of Present Illness Admission Date/PCP: 07/15/19 16:05 NARDA MODI MD History of Present Illness: ROBE CLEMENT is a 59 year old female who was admitted through the emergency r oom for a 2-day history of diarrhea. Patient states that on Thursday she had 6 or 8 loose stools , she had 8 loose stools and today she has had 2. States that last night and today the stools have turned green and have a foul odor. States that a little over a month ago she did have to take antibiotics for dental procedure she thinks it was Cipro and Flagyl. Patient also states that yesterday and especially today she has been short of breath with exertion. She also complains of some different chills in the last couple days, ever she denies denies cough, body aches. She was diagnosed with multiple myeloma approximately 6 years ago and states she has been in remission for 5 years. Does a once daily dose of chemo by mouth. Patient also states she has hypertension and takes Lopressor for this. Patient denies diabetes she denies IA she denies CVA. 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 She comes in now for fever, chills, diarrhea, shortness of breath and multiple myeloma. Past Medical History Cardiac Medical History: Reports: Hypertension Denies: Coronary Artery Disease, Myocardial Infarction Pulmonary Medical History: Reports: Bronchitis Denies: Asthma, Chronic Obstructive Pulmonary Disease (COPD), Pneumonia Neurological Medical History: Denies: Seizures Malignancy Medical History: Reports: Other - Multiple myeloma GI Medical History: Denies: Cirrhosis, Crohn's Disease, Ulcerative Colitis Musculoskeltal Medical History: Denies: Arthritis Psychiatric Medical History: Denies: Depression Hematology: Reports: Anemia Past Surgical History Past Surgical History: Reports: Other - Stem cell transplant Denies: Hysterectomy Social History Smoking Status: Former Smoker Frequency of Alcohol Use: Occasional Hx Recreational Drug Use: No Hx Prescription Drug Abuse: No - Advance Directive Resuscitation Status: Full Code Family History Family History: CAD - With congestive heart failure, Other - Dementia, skin cancer, kidney failure Parental Family History Reviewed: No Children Family History Reviewed: No Sibling(s) Family History Reviewed.: No Medication/Allergy Home Medications: Albuterol Sulfate [Proair HFA Inhalation Aerosol 8.5 gm MDI] 1 puff IH Q4HP PRN 01/31/19 Amlodipine Besylate [Norvasc 10 mg Tablet] 10 mg PO DAILY 01/31/19 Aspirin [Adult Low Dose Aspirin EC] 81 mg PO DAILY 01/31/19 Calcium Carbonate/Vitamin D3 [Calcium 600-Vit D3 800 Tablet] 1 tab PO DAILY 01/31/19 Lansoprazole [Prevacid] 15 mg PO DAILY 01/31/19 Lenalidomide [Revlimid] 5 mg PO DAILY 01/31/19 Magnesium Oxide [Magnesium] 500 mg PO DAILY 01/31/19 Multivitamin [Daily Multiple Vitamin] 1 tab PO DAILY 01/31/19 Oxycodone HCl [Oxycodone HCl 10 MG Tablet] 10 mg PO BIDP PRN 01/31/19 Azithromycin [Zithromax 250 mg Tablet] 250 mg PO DAILY 3 Days #3 tablet 02/03/19 Azithromycin [Zithromax 250 mg Tablet] 250 mg PO DAILY 3 Days #3 tablet 02/03/19 Potassium Chloride [Klor-Con M20] 40 meq PO BID 30 Days #60 tab.er.prt 02/03/19 Allergies/Adverse Reactions: penicillin V [Penicillin V] Allergy (Unknown, Verified 01/31/19 07:28) vancomycin Allergy (Unknown, Verified 01/31/19 07:28) Pruritis codeine [Codeine] Allergy (Verified 01/31/19 07:28) Review of Systems Constitutional: PRESENT: chills, fever(s) Cardiovascular: ABSENT: chest pain, dyspnea on exertion, edema, orthropnea, palpitations Respiratory: ABSENT: cough, hemoptysis Gastrointestinal: PRESENT: diarrhea Neurological: ABSENT: abnormal gait, abnormal speech, confusion, dizziness, focal weakness, syncope Psychiatric: ABSENT: anxiety, depression, homidical ideation, suicidal ideation Physical Exam Vital Signs: Temp Pulse Resp BP Pulse Ox 97.3 F 66 20 128/94 H 97 07/15/19 11:17 07/15/19 11:17 07/15/19 11:17 07/15/19 11:17 07/15/19 11:17 Intake & Output 07/14/19 07/15/19 07/16/19 06:59 06:59 06:59 Intake Total 1000 Balance 1000 Weight 79.379 kg General appearance: PRESENT: no acute distress Eye exam: PRESENT: conjunctiva pink, PERRLA Mouth exam: PRESENT: moist, tongue midline Respiratory exam: PRESENT: clear to auscultation maxx. ABSENT: rales, rhonchi, wheezes Cardiovascular exam: PRESENT: RRR. ABSENT: diastolic murmur, rubs, systolic murmur GI/Abdominal exam: PRESENT: normal bowel sounds, soft. ABSENT: distended, guarding, mass, organolmegaly, rebound, tenderness Neurological exam: PRESENT: alert, awake, oriented to person, oriented to place, oriented to time, oriented to situation, CN II-XII grossly intact. ABSENT: motor sensory deficit Psychiatric exam: PRESENT: appropriate affect, normal mood. ABSENT: homicidal ideation, suicidal ideation Results Laboratory Results: 07/15/19 13:00 07/15/19 13:00 07/15/19 07/15/19 07/15/19 13:00 13:00 13:00 WBC 4.0 RBC 4.65 Hgb 15.2 Hct 43.7 MCV 94 MCH 32.7 MCHC 34.7 RDW 14.7 H Plt Count 206 Seg Neutrophils % Not Reportable Sodium 141.0 Potassium 2.7 L* Chloride 104 Carbon Dioxide 14 L Anion Gap 23 H BUN 23 H Creatinine 2.95 H Est GFR ( Amer) 20 L Glucose 175 H Calcium 10.1 Magnesium 1.9 Total Bilirubin 0.7 AST 22 Alkaline Phosphatase 84 Total Protein 9.5 H Albumin 4.8 07/15/19 13:00 Troponin I < 0.012 NT-Pro-B Natriuret Pep 382 H Impressions: Chest X-Ray 07/15/19 13:39 IMPRESSION: NO ACUTE RADIOGRAPHIC FINDING IN THE CHEST. Assessment and Plan - Diagnosis (1) ANGELINA (acute kidney injury) Is this a current diagnosis for this admission?: Yes (2) Dehydration Is this a current diagnosis for this admission?: Yes (3) Hypokalemia Is this a current diagnosis for this admission?: Yes (4) Leukopenia due to antineoplastic chemotherapy Is this a current diagnosis for this admission?: Yes (5) Multiple myeloma Qualifiers: Multiple myeloma remission status: in remission Qualified Code(s): C90.01 - Multiple myeloma in remission Is this a current diagnosis for this admission?: Yes (6) Obesity (BMI 30.0-34.9) Is this a current diagnosis for this admission?: Yes (7) Shortness of breath Is this a current diagnosis for this admission?: Yes - Plan Summary Summary: Patient will be admitted for gentle hydration, potassium replacement. We will check her stools for C. difficile Will not start antibiotics at this time pending further lab results Chest x-ray shows no acute cardiopulmonary process - Time Time Spent with patient: 35 or more minutes
[2019-07-15 16:50] LABS: APPEARANCE,URINE CLOUDY; BILIRUBIN,URINE NEGATIVE (NEGATIVE); GLUCOSE, URINE NEGATIVE (NEGATIVE); KETONES,URINE NEGATIVE (NEGATIVE); LEUKOCYTE ESTERASE,URINE NEGATIVE (NEGATIVE); NITRITE,URINE POSITIVE (NEGATIVE); PROTEIN,URINE 100 mg/dL (NEGATIVE); URINE SPECIFIC GRAVITY 1.016; UROBILINOGEN,URINE NEGATIVE mg/dL (<2.0)
[2019-07-15 16:51] LABS: COLOR,URINE DARK YELLOW
[2019-07-15 17:10] LABS: AMYLASE 66 U/L (30-110); BLOOD UREA NITROGEN 23 mg/dL (7-20); CALCIUM 10.2 mg/dL (8.4-10.2); CARBON DIOXIDE 14 mmol/L (22-30); CHLORIDE 103 mmol/L (98-107); GLUCOSE 176 mg/dL (75-110)
[2019-07-15 17:17] LABS: POTASSIUM 2.8 mmol/L (3.6-5.0)
[2019-07-15 18:33] LABS: ANION GAP 20 (5-19)
[2019-07-15] MEDS: NORMAL SALINE 1000 ML 1,000 ML IV PRN (20:09)
[2019-07-15] MEDS: HEPARIN SOD (PORCINE) 5,000 UNIT/ML 1 ML VIAL SUBCUT SCH (21:12)
[2019-07-15] MEDS: FAMOTIDINE 20 MG TABLET PO SCH (21:15)
[2019-07-15] MEDS ORDERED: FAMOTIDINE 20 MG TABLET PO SCH (22:00)
[2019-07-16 03:10] LABS: APPEARANCE,URINE CLOUDY; BILIRUBIN,URINE NEGATIVE (NEGATIVE); COLOR,URINE DARK YELLOW; GLUCOSE, URINE NEGATIVE (NEGATIVE); KETONES,URINE NEGATIVE (NEGATIVE); LEUKOCYTE ESTERASE,URINE NEGATIVE (NEGATIVE); NITRITE,URINE POSITIVE (NEGATIVE); PROTEIN,URINE 100 mg/dL (NEGATIVE); URINE SPECIFIC GRAVITY 1.023; UROBILINOGEN,URINE NEGATIVE mg/dL (<2.0)
[2019-07-16 04:07] LABS: C DIFFICILE GDH NEGATIVE (NEGATIVE)
[2019-07-16 05:34] LABS: HEMATOCRIT 34.5 % (36.0-47.0); MEAN CORPUSCULAR HGB CONC 35.2 g/dL (32.0-36.0); MEAN CORPUSCULAR VOLUME 94 fl (80-97); PLATELET COUNT 137 10^3/uL (150-450); RED BLOOD COUNT 3.67 10^6/uL (3.72-5.28); RED CELL DISTRIBUTION WIDTH 14.8 % (11.5-14.0)
[2019-07-16 05:35] LABS: HEMOGLOBIN 12.1 g/dL (12.0-15.5); WHITE BLOOD COUNT 2.1 10^3/uL (4.0-10.5)
[2019-07-16] MEDS: HEPARIN SOD (PORCINE) 5,000 UNIT/ML 1 ML VIAL SUBCUT SCH ×3 (05:43→21:35)
[2019-07-16 05:48] LABS: ANION GAP 15 (5-19); BLOOD UREA NITROGEN 26 mg/dL (7-20); CALCIUM 8.9 mg/dL (8.4-10.2); CARBON DIOXIDE 13 mmol/L (22-30); CHLORIDE 111 mmol/L (98-107); GLUCOSE 127 mg/dL (75-110); POTASSIUM 3.2 mmol/L (3.6-5.0)
[2019-07-16] MEDS: NORMAL SALINE 1000 ML 1,000 ML IV PRN ×3 (05:48→21:40)
[2019-07-16 06:03] LABS: ABSOLUTE LYMPHOCYTES# (MANUAL) 0.4 10^3/uL (0.5-4.7); ABSOLUTE MONOCYTES # (MANUAL) 0.2 10^3/uL (0.1-1.4); BAND NEUTROPHILS % (MANUAL) 8 % (3-5); BASOPHILS % (MANUAL) 0 % (0-2); EOSINOPHILS % (MANUAL) 0 % (0-6); LYMPHOCYTES % (MANUAL) 21 % (13-45); MONOCYTES % (MANUAL) 10 % (3-13); SEGMENTED NEUTROPHILS % (MAN) 61 % (42-78); TOTAL CELLS COUNTED 100
[2019-07-16 06:04] LABS: ANISOCYTOSIS SLIGHT; PLATELET COMMENT DECREASED
--- NOTE | 2019-07-16 10:12 | PDOC PROGRESS REPORT ---
Subjective Progress Note for:: 07/16/19 Reason For Visit: HYPOKALEMIA,ANGELINA(ACUTE KIDNEY INJURY),DEHYDRATION 07/16/2019 Admitted yesterday through the emergency room for the above diagnoses, patient significantly improved today Physical Exam Vital Signs: Temp Pulse Resp BP Pulse Ox 97.4 F 63 16 131/63 H 99 07/16/19 07:00 07/16/19 07:00 07/16/19 07:00 07/16/19 07:00 07/16/19 07:00 Intake & Output 07/15/19 07/16/19 07/17/19 06:59 06:59 06:59 Intake Total 3074 Balance 3074 Weight 79.6 kg General appearance: PRESENT: no acute distress Respiratory exam: PRESENT: clear to auscultation maxx. ABSENT: rales, rhonchi, wheezes Cardiovascular exam: PRESENT: RRR. ABSENT: diastolic murmur, rubs, systolic murmur GI/Abdominal exam: PRESENT: normal bowel sounds, soft, other - No vomiting since admission. ABSENT: distended, guarding, mass, organolmegaly, rebound, tenderness Neurological exam: PRESENT: alert, awake, oriented to person, oriented to place, oriented to time, oriented to situation, CN II-XII grossly intact. ABSENT: motor sensory deficit Psychiatric exam: PRESENT: appropriate affect, normal mood. ABSENT: homicidal ideation, suicidal ideation Results Laboratory Results: 07/16/19 05:00 07/16/19 05:00 07/15/19 07/15/19 07/15/19 13:00 13:00 13:00 WBC 4.0 RBC 4.65 Hgb 15.2 Hct 43.7 MCV 94 MCH 32.7 MCHC 34.7 RDW 14.7 H Plt Count 206 Seg Neutrophils % Not Reportable Sodium 141.0 Potassium 2.7 L* Chloride 104 Carbon Dioxide 14 L Anion Gap 23 H BUN 23 H Creatinine 2.95 H Est GFR ( Amer) 20 L Glucose 175 H Calcium 10.1 Magnesium 1.9 Total Bilirubin 0.7 AST 22 Alkaline Phosphatase 84 Total Protein 9.5 H Albumin 4.8 Amylase Lipase TSH Urine Color Urine Appearance Urine pH Ur Specific [place] Urine Protein Urine Glucose (UA) Urine Ketones Urine Blood Urine Nitrite Ur Leukocyte Esterase Urine WBC (Auto) Urine RBC (Auto) 07/15/19 07/15/1919 13:00 13:00 16:00 WBC RBC Hgb Hct MCV MCH MCHC RDW Plt Count Seg Neutrophils % Sodium 137.3 Potassium 2.8 L* Chloride 103 Carbon Dioxide 14 L Anion Gap 20 H BUN 23 H Creatinine 2.97 H Est GFR ( Amer) 20 L Glucose 176 H Calcium 10.2 Magnesium Total Bilirubin AST Alkaline Phosphatase Total Protein Albumin Amylase 66 Lipase 146.6 TSH 4.69 H Urine Color DARK YELLOW Urine Appearance CLOUDY Urine pH 5.0 Ur Specific [place] 1.016 Urine Protein 100 H Urine Glucose (UA) NEGATIVE Urine Ketones NEGATIVE Urine Blood MODERATE H Urine Nitrite POSITIVE H Ur Leukocyte Esterase NEGATIVE Urine WBC (Auto) 11 Urine RBC (Auto) 8 07/16/19 07/16/19 07/16/19 02:35 05:00 05:00 WBC 2.1 L D RBC 3.67 L Hgb 12.1 D Hct 34.5 L MCV 94 MCH 33.0 MCHC 35.2 RDW 14.8 H Plt Count 137 L Seg Neutrophils % Not Reportable Sodium 138.6 Potassium 3.2 L Chloride 111 H Carbon Dioxide 13 L Anion Gap 15 BUN 26 H Creatinine 1.76 H Est GFR ( Amer) 36 L Glucose 127 H Calcium 8.9 Magnesium 1.8 Total Bilirubin AST Alkaline Phosphatase Total Protein Albumin Amylase Lipase TSH Urine Color DARK YELLOW Urine Appearance CLOUDY Urine pH 6.0 Ur Specific [place] 1.023 Urine Protein 100 H Urine Glucose (UA) NEGATIVE Urine Ketones NEGATIVE Urine Blood SMALL H Urine Nitrite POSITIVE H Ur Leukocyte Esterase NEGATIVE Urine WBC (Auto) 3 Urine RBC (Auto) 2 07/15/19 13:00 Troponin I < 0.012 NT-Pro-B Natriuret Pep 382 H Impressions: Chest X-Ray 07/15/19 13:39 IMPRESSION: NO ACUTE RADIOGRAPHIC FINDING IN THE CHEST. Assessment and Plan - Diagnosis (1) ANGELINA (acute kidney injury) Is this a current diagnosis for this admission?: Yes (2) Dehydration Is this a current diagnosis for this admission?: Yes (3) Hypokalemia Is this a current diagnosis for this admission?: Yes (4) Leukopenia due to antineoplastic chemotherapy Is this a current diagnosis for this admission?: Yes (5) Multiple myeloma Qualifiers: Multiple myeloma remission status: in remission Qualified Code(s): C90.01 - Multiple myeloma in remission Is this a current diagnosis for this admission?: Yes (6) Obesity (BMI 30.0-34.9) Is this a current diagnosis for this admission?: Yes (7) Shortness of breath Is this a current diagnosis for this admission?: Yes - Plan Summary Summary: Patient will be admitted for gentle hydration, potassium replacement. We will check her stools for C. difficile Will not start antibiotics at this time pending further lab results Chest x-ray shows no acute cardiopulmonary process 07/16/2019 This morning patient's potassium has come up to 3.2 from admission of 2.7 Retinae has corrected from 2.9 and is now 1.7 I have resumed patient's home meds Continue IV fluids today add potassium supplements and anticipate discharge tomorrow No further vomiting or significant diarrhea - Time Time Spent with patient: 25-34 minutes
[2019-07-16] MEDS ORDERED: METOPROLOL TARTRATE 50 MG TABLET PO SCH (10:15)
[2019-07-16] MEDS ORDERED: (PENDING PHARMACY ID) (Lenalidomide [Revlimid] 5 MG) PO SCH ×2 (10:15→11:00)
[2019-07-16] MEDS ORDERED: (PENDING PHARMACY ID) (Potassium Chloride [Klor-Con M20] 40 MEQ) PO SCH ×2 (10:15→11:00)
[2019-07-16] MEDS: METOPROLOL TARTRATE 50 MG TABLET PO SCH (11:31)
--- NOTE | 2019-07-16 11:49 | EKG REPORT ---
SEVERITY:- ABNORMAL ECG - SINUS RHYTHM PROBABLE LEFT VENTRICULAR HYPERTROPHY : Confirmed by: Marcela Baker MD 16-Jul-2019 11:48:35
[2019-07-16] MEDS ORDERED: ASPIRIN 81 MG TABLET, ENT COATED PO ONE (12:00)
[2019-07-16] MEDS ORDERED: CALCIUM CARBONATE 250 MG/VITAMIN D3 125 UNIT TABLET PO ONE (12:00)
[2019-07-16] MEDS ORDERED: MULTIVITAMIN TABLET PO ONE (12:00)
[2019-07-16] MEDS ORDERED: POTASSIUM CHLORIDE 10 MEQ CAPSULE.ER PO ONE (12:00)
[2019-07-16] MEDS: DOCUSATE SODIUM 100 MG CAPSULE PO SCH (12:37)
[2019-07-16] MEDS: POTASSIUM CHLORIDE 10 MEQ CAPSULE.ER PO SCH (18:19)
[2019-07-16] MEDS: FAMOTIDINE 20 MG TABLET PO SCH (21:39)
[2019-07-17] MEDS: HEPARIN SOD (PORCINE) 5,000 UNIT/ML 1 ML VIAL SUBCUT SCH ×3 (05:05→22:03)
[2019-07-17] MEDS: DOCUSATE SODIUM 100 MG CAPSULE PO SCH (09:39)
[2019-07-17] MEDS: CALCIUM CARBONATE 250 MG/VITAMIN D3 125 UNIT TABLET PO SCH (09:42)
[2019-07-17] MEDS: MULTIVITAMIN TABLET PO SCH (09:42)
[2019-07-17] MEDS: POTASSIUM CHLORIDE 10 MEQ CAPSULE.ER PO SCH ×3 (09:42→22:05)
[2019-07-17] MEDS: ASPIRIN 81 MG TABLET, ENT COATED PO SCH (09:42)
[2019-07-17] MEDS: METOPROLOL TARTRATE 50 MG TABLET PO SCH (09:43)
[2019-07-17] MEDS: NORMAL SALINE 1000 ML 1,000 ML IV PRN ×2 (09:45→14:09)
[2019-07-17] MEDS ORDERED: MULTIVITAMIN TABLET PO SCH (10:00)
[2019-07-17] MEDS ORDERED: (PENDING PHARMACY ID) (Calcium Carbonate/Vitamin D3 [Calcium 600-Vit D3 800 Tablet] 1 TAB) PO SCH ×2 (10:00)
[2019-07-17] MEDS ORDERED: ASPIRIN 81 MG TABLET, ENT COATED PO SCH (10:00)
[2019-07-17 10:11] LABS: ANION GAP 13 (5-19); BLOOD UREA NITROGEN 18 mg/dL (7-20); CALCIUM 8.1 mg/dL (8.4-10.2); CARBON DIOXIDE 12 mmol/L (22-30); CHLORIDE 117 mmol/L (98-107); GLUCOSE 93 mg/dL (75-110)
[2019-07-17 10:17] LABS: POTASSIUM 2.6 mmol/L (3.6-5.0)
--- NOTE | 2019-07-17 14:32 | PDOC PROGRESS REPORT ---
Subjective Progress Note for:: 07/17/19 Reason For Visit: MULTIPLE MYELOMA,DEHYDRATION,HYPOKALEMIA, 07/17/2019 she was admitted for hypokalemia, diarrhea, probable UTI, acute kidney injury. Physical Exam Vital Signs: Temp Pulse Resp BP Pulse Ox 98.0 F 62 16 121/54 L 100 07/17/19 12:00 07/17/19 12:00 07/17/19 12:00 07/17/19 12:00 07/17/19 12:00 Intake & Output 07/16/19 07/17/19 07/18/19 06:59 06:59 06:59 Intake Total 3074 4831 Balance 3074 4831 Weight 79.6 kg 80.1 kg General appearance: PRESENT: no acute distress, other - Patient is in bed resting comfortably Respiratory exam: PRESENT: clear to auscultation maxx. ABSENT: rales, rhonchi, wheezes Cardiovascular exam: PRESENT: RRR. ABSENT: diastolic murmur, rubs, systolic murmur Neurological exam: PRESENT: alert, awake, oriented to person, oriented to place, oriented to time, oriented to situation, CN II-XII grossly intact. ABSENT: motor sensory deficit Psychiatric exam: PRESENT: appropriate affect, normal mood. ABSENT: homicidal ideation, suicidal ideation Results Laboratory Results: 07/16/19 05:00 07/17/19 09:19 07/17/19 09:19 Sodium 141.6 Potassium 2.6 L* Chloride 117 H Carbon Dioxide 12 L Anion Gap 13 BUN 18 Creatinine 1.40 H Est GFR ( Amer) 47 L Glucose 93 Calcium 8.1 L 07/15/19 13:00 Troponin I < 0.012 NT-Pro-B Natriuret Pep 382 H Impressions: Chest X-Ray 07/15/19 13:39 IMPRESSION: NO ACUTE RADIOGRAPHIC FINDING IN THE CHEST. Assessment and Plan - Diagnosis (1) ANGELINA (acute kidney injury) Is this a current diagnosis for this admission?: Yes (2) Dehydration Is this a current diagnosis for this admission?: Yes (3) Hypokalemia Is this a current diagnosis for this admission?: Yes (4) Leukopenia due to antineoplastic chemotherapy Is this a current diagnosis for this admission?: Yes (5) Multiple myeloma Qualifiers: Multiple myeloma remission status: in remission Qualified Code(s): C90.01 - Multiple myeloma in remission Is this a current diagnosis for this admission?: Yes (6) Obesity (BMI 30.0-34.9) Is this a current diagnosis for this admission?: Yes (7) Shortness of breath Is this a current diagnosis for this admission?: Yes - Plan Summary Summary: Patient will be admitted for gentle hydration, potassium replacement. We will check her stools for C. difficile Will not start antibiotics at this time pending further lab results Chest x-ray shows no acute cardiopulmonary process 07/16/2019 This morning patient's potassium has come up to 3.2 from admission of 2.7 Retinae has corrected from 2.9 and is now 1.7 I have resumed patient's home meds Continue IV fluids today add potassium supplements and anticipate discharge tomorrow No further vomiting or significant diarrhea 07/17/2019 Temperature 98, pulse 62 ,blood pressure 121/54, O2 sat 100% on room air White count on admission was 4000 yesterday was 2.1 platelets 137,000 (patient is on chemotherapy) Potassium 2.8 on admission yesterday 3.2 today 2.6 Urine culture is pending but urinalysis was positive nitrates negative leukocytes Patient was taking potassium 40 mEq twice daily prior to admission. Patient has had trouble with her potassium levels for some time now. I will increase her potassium to 40 mEq 3 times daily, I sent her on Bactrim 1 tablet twice daily for her UTI Hopefully be able to discharge her tomorrow. - Time Time Spent with patient: 25-34 minutes
[2019-07-17] MEDS: SULFAMETHOXAZOLE/TRIMETHOPRIM 800-160 MG TABLET PO SCH (17:52)
[2019-07-17] MEDS: ONDANSETRON HCL INJ/PF 4 MG/2 ML SDV IV PRN (19:36)
[2019-07-17] MEDS: FAMOTIDINE 20 MG TABLET PO SCH (22:06)
[2019-07-18] MEDS: HEPARIN SOD (PORCINE) 5,000 UNIT/ML 1 ML VIAL SUBCUT SCH ×3 (05:25→21:17)
[2019-07-18] MEDS: POTASSIUM CHLORIDE 10 MEQ CAPSULE.ER PO SCH (06:22)
[2019-07-18] MEDS: NORMAL SALINE 1000 ML 1,000 ML IV PRN (06:24)
[2019-07-18] MEDS: SULFAMETHOXAZOLE/TRIMETHOPRIM 800-160 MG TABLET PO SCH ×2 (10:13→17:54)
[2019-07-18] MEDS: ASPIRIN 81 MG TABLET, ENT COATED PO SCH (10:13)
[2019-07-18] MEDS: MULTIVITAMIN TABLET PO SCH (10:13)
[2019-07-18] MEDS: CALCIUM CARBONATE 250 MG/VITAMIN D3 125 UNIT TABLET PO SCH (10:13)
[2019-07-18] MEDS: METOPROLOL TARTRATE 50 MG TABLET PO SCH (10:13)
[2019-07-18] MEDS: DOCUSATE SODIUM 100 MG CAPSULE PO SCH (10:15)
[2019-07-18 10:56] LABS: ANION GAP 12 (5-19); BLOOD UREA NITROGEN 12 mg/dL (7-20); CARBON DIOXIDE 15 mmol/L (22-30); CHLORIDE 111 mmol/L (98-107); GLUCOSE 102 mg/dL (75-110)
[2019-07-18 10:58] LABS: POTASSIUM 2.3 mmol/L (3.6-5.0)
--- NOTE | 2019-07-18 11:54 | PDOC PROGRESS REPORT ---
Subjective Progress Note for:: 07/18/19 Reason For Visit: MULTIPLE MYELOMA,DEHYDRATION,HYPOKALEMIA, 07/18/2019 Patient was admitted 4 days ago for diarrhea as well as shortness of breath Patient has a history of multiple myeloma Physical Exam Vital Signs: Temp Pulse Resp BP Pulse Ox 98.0 F 70 17 110/64 100 07/18/19 07:41 07/18/19 07:41 07/18/19 07:41 07/18/19 07:41 07/18/19 07:41 Intake & Output 07/17/19 07/18/19 07/19/19 06:59 06:59 06:59 Intake Total 4831 3230 Output Total 2 Balance 4831 3228 Weight 80.1 kg 80.1 kg General appearance: PRESENT: no acute distress Respiratory exam: PRESENT: clear to auscultation maxx. ABSENT: rales, rhonchi, wheezes Cardiovascular exam: PRESENT: RRR. ABSENT: diastolic murmur, rubs, systolic murmur GI/Abdominal exam: PRESENT: normal bowel sounds, soft. ABSENT: distended, guarding, mass, organolmegaly, rebound, tenderness Neurological exam: PRESENT: alert, awake, oriented to person, oriented to place, oriented to time, oriented to situation, CN II-XII grossly intact. ABSENT: motor sensory deficit Psychiatric exam: PRESENT: appropriate affect, normal mood, other - Patient is in good spirits however she wants to go home. ABSENT: homicidal ideation, suicidal ideation Results Laboratory Results: 07/16/19 05:00 07/18/19 10:07 07/18/19 10:07 Sodium 137.9 Potassium 2.3 L* Chloride 111 H Carbon Dioxide 15 L Anion Gap 12 BUN 12 Creatinine 1.51 H Est GFR ( Amer) 43 L Glucose 102 Calcium 8.0 L 07/15/19 13:00 Troponin I < 0.012 NT-Pro-B Natriuret Pep 382 H Impressions: Chest X-Ray 07/15/19 13:39 IMPRESSION: NO ACUTE RADIOGRAPHIC FINDING IN THE CHEST. Assessment and Plan - Diagnosis (1) ANGELINA (acute kidney injury) Is this a current diagnosis for this admission?: Yes (2) Dehydration Is this a current diagnosis for this admission?: Yes (3) Hypokalemia Is this a current diagnosis for this admission?: Yes (4) Leukopenia due to antineoplastic chemotherapy Is this a current diagnosis for this admission?: Yes (5) Multiple myeloma Qualifiers: Multiple myeloma remission status: in remission Qualified Code(s): C90.01 - Multiple myeloma in remission Is this a current diagnosis for this admission?: Yes (6) Obesity (BMI 30.0-34.9) Is this a current diagnosis for this admission?: Yes (7) Shortness of breath Is this a current diagnosis for this admission?: Yes - Plan Summary Summary: Patient will be admitted for gentle hydration, potassium replacement. We will check her stools for C. difficile Will not start antibiotics at this time pending further lab results Chest x-ray shows no acute cardiopulmonary process 07/16/2019 This morning patient's potassium has come up to 3.2 from admission of 2.7 Retinae has corrected from 2.9 and is now 1.7 I have resumed patient's home meds Continue IV fluids today add potassium supplements and anticipate discharge tomorrow No further vomiting or significant diarrhea 07/17/2019 Temperature 98, pulse 62 ,blood pressure 121/54, O2 sat 100% on room air White count on admission was 4000 yesterday was 2.1 platelets 137,000 (patient is on chemotherapy) Potassium 2.8 on admission yesterday 3.2 today 2.6 Urine culture is pending but urinalysis was positive nitrates negative leukocytes Patient was taking potassium 40 mEq twice daily prior to admission. Patient has had trouble with her potassium levels for some time now. I will increase her potassium to 40 mEq 3 times daily, I sent her on Bactrim 1 tablet twice daily for her UTI Hopefully be able to discharge her tomorrow. 07/18/2019 Vital signs are extremely stable her pulse is around 70 blood pressure 110/64 sats are 100% on room air Patient's potassium is remaining persistently low, this however is a chronic p roblem and may be exacerbated now by her persistent diarrhea Any rate I would like to try to get it higher before discharge and will consult hematology for suggestions Rechecking certain labs today that are pending. Patient continues to have diarrhea about 5 loose stools per day. C. difficile is negative. Recently started on Septra for her UTI may incidentally help retain more potassium retain more potassium Yesterday replaces with 120meq po, today will try 160. Maybe futile in light of her underlying disease. I am reluctant to stop diarrhea, though this maybe what is needed. Patient is ready for discharge otherwise. I have discussed with Dr. Medellin. - Time Time Spent with patient: 35 or more minutes
[2019-07-18] MEDS: ONDANSETRON HCL INJ/PF 4 MG/2 ML SDV IV PRN (13:46)
[2019-07-18] MEDS: POTASSIUM CHLORIDE 20 MEQ PACKET PO SCH ×2 (13:49→17:54)
[2019-07-18] MEDS ORDERED: ONDANSETRON HCL INJ/PF 4 MG/2 ML SDV IV PRN (15:00)
[2019-07-18] MEDS: LOPERAMIDE HCL 2 MG CAPSULE PO PRN (15:41)
[2019-07-18] MEDS: FAMOTIDINE 20 MG TABLET PO SCH (21:17)
[2019-07-19] MEDS: POTASSIUM CHLORIDE 20 MEQ PACKET PO SCH ×5 (00:19→23:09)
[2019-07-19] MEDS: LOPERAMIDE HCL 2 MG CAPSULE PO PRN (00:20)
[2019-07-19] MEDS: HEPARIN SOD (PORCINE) 5,000 UNIT/ML 1 ML VIAL SUBCUT SCH ×3 (06:01→21:45)
--- NOTE | 2019-07-19 08:23 | PDOC CONSULTATION ---
Consultation Consult Date: 07/19/19 Attending physician:: EMMA HANEY Provider Consulted: DIMAS SNOW Consult reason:: Patient with history of multiple myeloma on maintenance Revlimid here with severe diarrhea and hypokalemia History of Present Illness Admission Date/PCP: 07/15/19 16:05 NARDA MODI MD Patient complains of: Diarrhea, weakness, dehydration History of Present Illness: ROBE CLEMENT is a 59 year old female with known history of multiple myeloma, diagnosed initially now about 6 years ago, most recently in a stringent complete remission post transplant. She has been on maintenance Revlimid now for about 5 years. About 1 week ago she began having loose stools and quickly went into severe diarrhea, ultimately she was admitted with dehydration and hypokalemia and acute renal failure. Revlimid through the admission and on Thursday the patient herself remembered that the Revlimid could cause diarrhea and mentioned it to her nurse let us know that patient has an hospitalist is now placed a consult for us. Her last 24 hours her diarrhea has lightened, she is on Imodium as well. Thus far infectious work-up including C. difficile, and influenza is negative, however, urine culture indicates Klebsiella pneumonia sensitive to Bactrim. Past Medical History Cardiac Medical History: Reports: Hypertension Denies: Coronary Artery Disease, Myocardial Infarction Pulmonary Medical History: Reports: Bronchitis Denies: Asthma, Chronic Obstructive Pulmonary Disease (COPD), Pneumonia Neurological Medical History: Denies: Seizures Malignancy Medical History: Reports: Other - Multiple myeloma GI Medical History: Denies: Cirrhosis, Crohn's Disease, Ulcerative Colitis Musculoskeltal Medical History: Denies: Arthritis Psychiatric Medical History: Denies: Depression Hematology: Reports: Anemia Past Surgical History Past Surgical History: Reports: Other - Stem cell transplant Denies: Hysterectomy Social History Information Source: Patient Smoking Status: Former Smoker Frequency of Alcohol Use: Occasional Hx Recreational Drug Use: No Hx Prescription Drug Abuse: No - Advance Directive Resuscitation Status: Full Code Family History Family History: CAD - With congestive heart failure, Other - Dementia, skin cancer, kidney failure Parental Family History Reviewed: Yes Children Family History Reviewed: Yes Sibling(s) Family History Reviewed.: Yes Medication/Allergy Home Medications: Aspirin [Adult Low Dose Aspirin EC] 81 mg PO DAILY 01/31/19 Calcium Carbonate/Vitamin D3 [Calcium 600-Vit D3 800 Tablet] 1 tab PO DAILY 01/31/19 Lansoprazole [Prevacid] 15 mg PO QHS 01/31/19 Lenalidomide [Revlimid] 5 mg PO DAILY 01/31/19 Magnesium Oxide [Magnesium] 500 mg PO DAILY 01/31/19 Multivitamin [Daily Multiple Vitamin] 1 tab PO DAILY 01/31/19 Oxycodone HCl [Oxycodone HCl 10 MG Tablet] 10 mg PO Q12HP PRN 01/31/19 Potassium Chloride [Klor-Con M20] 40 meq PO BID 30 Days #60 tab.er.prt 02/03/19 Metoprolol Tartrate [Lopressor 50 mg Tablet] 50 mg PO DAILY 07/15/19 Allergies/Adverse Reactions: penicillin V [Penicillin V] Allergy (Unknown, Verified 01/31/19 07:28) vancomycin Allergy (Unknown, Verified 01/31/19 07:28) Pruritis codeine [Codeine] Allergy (Verified 01/31/19 07:28) Review of Systems Constitutional: ABSENT: chills, fever(s), headache(s), weight gain, weight loss Eyes: ABSENT: visual disturbances Ears: ABSENT: hearing changes Cardiovascular: ABSENT: chest pain, dyspnea on exertion, edema, orthropnea, palpitations Respiratory: ABSENT: cough, hemoptysis Gastrointestinal: ABSENT: abdominal pain, constipation, diarrhea, hematemesis, hematochezia, nausea, vomiting Genitourinary: ABSENT: dysuria, hematuria Musculoskeletal: ABSENT: joint swelling Integumentary: ABSENT: rash, wounds Neurological: ABSENT: abnormal gait, abnormal speech, confusion, dizziness, focal weakness, syncope Psychiatric: ABSENT: anxiety, depression, homidical ideation, suicidal ideation Endocrine: ABSENT: cold intolerance, heat intolerance, polydipsia, polyuria Hematologic/Lymphatic: ABSENT: easy bleeding, easy bruising Physical Exam Vital Signs: Temp Pulse Resp BP Pulse Ox 97.9 F 81 16 120/63 100 07/18/19 23:58 07/18/19 23:58 07/18/19 23:58 07/18/19 23:58 07/18/19 23:58 Intake & Output 07/18/19 07/19/19 07/20/19 06:59 06:59 06:59 Intake Total 3230 1170 Output Total 2 Balance 3228 1170 Weight 80.1 kg 80.6 kg General appearance: PRESENT: no acute distress, well-developed, well-nourished Head exam: PRESENT: atraumatic, normocephalic Eye exam: PRESENT: conjunctiva pink, EOMI, PERRLA. ABSENT: scleral icterus Ear exam: PRESENT: normal external ear exam Mouth exam: PRESENT: moist, tongue midline Neck exam: ABSENT: carotid bruit, JVD, lymphadenopathy, thyromegaly Respiratory exam: PRESENT: clear to auscultation maxx. ABSENT: rales, rhonchi, wheezes Cardiovascular exam: PRESENT: RRR. ABSENT: diastolic murmur, rubs, systolic murmur Pulses: PRESENT: normal dorsalis pedis pul Vascular exam: PRESENT: normal capillary refill GI/Abdominal exam: PRESENT: normal bowel sounds, soft. ABSENT: distended, guarding, mass, organolmegaly, rebound, tenderness Rectal exam: PRESENT: deferred Extremities exam: PRESENT: full ROM. ABSENT: calf tenderness, clubbing, pedal edema Neurological exam: PRESENT: alert, awake, oriented to person, oriented to place, oriented to time, oriented to situation, CN II-XII grossly intact. ABSENT: motor sensory deficit Psychiatric exam: PRESENT: appropriate affect, normal mood. ABSENT: homicidal ideation, suicidal ideation Skin exam: PRESENT: dry, intact, warm. ABSENT: cyanosis, rash Results Laboratory Results: 07/16/19 05:00 07/18/19 10:07 07/18/19 07/18/19 07/18/19 10:07 10:07 15:15 Sodium 137.9 Potassium 2.3 L* Chloride 111 H Carbon Dioxide 15 L Anion Gap 12 BUN 12 Creatinine 1.51 H Est GFR ( Amer) 43 L Glucose 102 Serum Osmolality 278 Calcium 8.0 L Urine Osmolality 571 07/17/19 08:52 Clean Catch Midstream Urine Culture - Final Klebsiella Pneumoniae 07/15/19 13:00 Troponin I < 0.012 NT-Pro-B Natriuret Pep 382 H Impressions: Chest X-Ray 07/15/19 13:39 IMPRESSION: NO ACUTE RADIOGRAPHIC FINDING IN THE CHEST. Assessment & Plan - Diagnosis (1) Severe diarrhea Is this a current diagnosis for this admission?: Yes Plan: Probably in part secondary to infection although Klebsiella diarrhea, may be viral on top of that, Revlimid can also cause diarrhea although for her she has not really experienced that for several years. We need to hold Revlimid until diarrhea fully resolved and decide on restarting, she may need several weeks off. (2) Dehydration Is this a current diagnosis for this admission?: Yes Plan: Continue with hydration (3) Hypokalemia due to excessive gastrointestinal loss of potassium Is this a current diagnosis for this admission?: Yes Plan: Secondary to the diarrhea as well as in part from Revlimid, continue with aggressive replacement (4) Leukopenia due to antineoplastic chemotherapy Is this a current diagnosis for this admission?: Yes Plan: Hold Revlimid, white count will recover (5) Multiple myeloma Qualifiers: Multiple myeloma remission status: in remission Qualified Code(s): C90.01 - Multiple myeloma in remission Is this a current diagnosis for this admission?: Yes Plan: Most recently in a complete remission, hold Revlimid for now, we will restart after patient recovers for a few weeks as an outpatient - Time Time Spent: Greater than 70 Minutes - Inpatient Certification Based on my medical assessment, after consideration of the patient's comorbidities, presenting symptoms, or acuity I expect that the services needed warrant INPATIENT care.: Yes I certify that my determination is in accordance with my understanding of Medicare's requirements for reasonable and necessary INPATIENT services [42 CFR 412.3e].: Yes Medical Necessity: Need For IV Fluids, Risk of Complication if Not Cared For in Hospital
[2019-07-19] MEDS: DOCUSATE SODIUM 100 MG CAPSULE PO SCH (10:43)
[2019-07-19] MEDS: CALCIUM CARBONATE 250 MG/VITAMIN D3 125 UNIT TABLET PO SCH (10:44)
[2019-07-19] MEDS: METOPROLOL TARTRATE 50 MG TABLET PO SCH (10:45)
[2019-07-19] MEDS: ASPIRIN 81 MG TABLET, ENT COATED PO SCH (10:45)
[2019-07-19] MEDS: MULTIVITAMIN TABLET PO SCH (10:45)
[2019-07-19] MEDS: SULFAMETHOXAZOLE/TRIMETHOPRIM 800-160 MG TABLET PO SCH ×2 (10:45→18:20)
[2019-07-19] MEDS: ONDANSETRON 4 MG TAB.RAPDIS PO PRN ×2 (10:55→21:48)
[2019-07-19 12:59] LABS: ANION GAP 13 (5-19); BLOOD UREA NITROGEN 10 mg/dL (7-20); CALCIUM 8.8 mg/dL (8.4-10.2); CARBON DIOXIDE 13 mmol/L (22-30); CHLORIDE 115 mmol/L (98-107); GLUCOSE 92 mg/dL (75-110); POTASSIUM 3.6 mmol/L (3.6-5.0)
[2019-07-19] MEDS: NORMAL SALINE 1000 ML 1,000 ML IV PRN (15:15)
--- NOTE | 2019-07-19 17:11 | PDOC PROGRESS REPORT ---
Subjective Progress Note for:: 07/19/19 Subjective:: The patient is a 59-year-old female with a past medical history of multiple myeloma, hypertension, COPD who was admitted on 07/15/2019 for ANGELINA, hypokalemia, dehydration, and leukopenia. The patient was seen on morning rounds. She was found resting in bed comfortably on room air. She reports that she is feeling significantly better today and is looking forward to eating a bland diet this afternoon (advancing from full liquid to low residue today). She reports decrease in stool production and resolution of her abdominal discomfort. She denies fever, chills, chest pain, palpitations, dyspnea, orthopnea, abdominal pain, nausea vomiting or diarrhea. She has no other questions or concerns at this time. No concerns per nursing. Reason For Visit: MULTIPLE MYELOMA,DEHYDRATION,HYPOKALEMIA, Physical Exam Vital Signs: Temp Pulse Resp BP Pulse Ox 97.8 F 66 16 118/86 H 100 07/19/19 15:14 07/19/19 15:14 07/19/19 15:14 07/19/19 15:14 07/19/19 15:14 Intake & Output 07/18/19 07/19/19 07/20/19 06:59 06:59 06:59 Intake Total 3230 1170 793 Output Total 2 Balance 3228 1170 793 Weight 80.1 kg 80.6 kg General appearance: PRESENT: no acute distress, obese, well-developed, well- nourished Head exam: PRESENT: atraumatic, normocephalic Eye exam: PRESENT: conjunctiva pink, EOMI, PERRLA. ABSENT: scleral icterus Mouth exam: PRESENT: moist, tongue midline Respiratory exam: PRESENT: clear to auscultation maxx, symmetrical, unlabored. ABSENT: rales, rhonchi, wheezes Cardiovascular exam: PRESENT: RRR, +S1, +S2. ABSENT: diastolic murmur, rubs, systolic murmur Pulses: PRESENT: normal dorsalis pedis pul Vascular exam: PRESENT: normal capillary refill GI/Abdominal exam: PRESENT: normal bowel sounds, soft. ABSENT: distended, guarding, mass, organolmegaly, rebound, tenderness Rectal exam: PRESENT: deferred Extremities exam: PRESENT: full ROM. ABSENT: calf tenderness, clubbing, pedal edema Neurological exam: PRESENT: alert, awake, oriented to person, oriented to place, oriented to time, oriented to situation, CN II-XII grossly intact. ABSENT: motor sensory deficit Psychiatric exam: PRESENT: appropriate affect, normal mood. ABSENT: homicidal ideation, suicidal ideation Skin exam: PRESENT: dry, intact, warm. ABSENT: cyanosis, rash Results Laboratory Results: 07/16/19 05:00 07/19/19 11:40 07/19/19 11:40 Sodium 140.7 Potassium 3.6 Chloride 115 H Carbon Dioxide 13 L Anion Gap 13 BUN 10 Creatinine 1.56 H Est GFR ( Amer) 41 L Glucose 92 Calcium 8.8 07/17/19 08:52 Clean Catch Midstream Urine Culture - Final Klebsiella Pneumoniae 07/15/19 13:00 Troponin I < 0.012 NT-Pro-B Natriuret Pep 382 H Impressions: Chest X-Ray 07/15/19 13:39 IMPRESSION: NO ACUTE RADIOGRAPHIC FINDING IN THE CHEST. Assessment and Plan - Diagnosis (1) ANGLEINA (acute kidney injury) Is this a current diagnosis for this admission?: Yes Plan: Creatinine appears to have stabilized at 1.56 Laboratory evaluation in January of this year showed creatinine of 0.96. Unfortunately, this may be her new baseline as her BUN has returned to normal and she has adequate oral intake and urine output. We will continue gentle IV fluids with follow-up chemistry in the morning. Avoid nephrotoxic medications as able. (2) Severe diarrhea Is this a current diagnosis for this admission?: Yes Plan: Multifactorial secondary to Chemotherapy agent and possible viral gastroenteritis. C. difficile is negative. Unfortunately stool and blood cultures were not obtained. However, the patient's symptoms have improved dramatically with only Bactrim p.o. for treatment of her UTI. Given this, unlikely to be bacterial in nature. Advance to low residue diet. Lactobacillus twice daily. Imodium as needed. Encourage p.o. fluids. (3) Dehydration Is this a current diagnosis for this admission?: Yes Plan: Resolved. Sodium, potassium, calcium, magnesium have all normalized. Creatinine has trended down from 2.95 to 1.56; appears this may be her new baseline. BUN improved from 26 to 10. She has adequate oral intake. Continue gentle IV fluids while advancing diet. (4) Hypokalemia Is this a current diagnosis for this admission?: Yes Plan: Replete. We will continue to monitor with daily chemistries and replace as necessary. (5) Pancytopenia Is this a current diagnosis for this admission?: Yes Plan: Likely secondary to Revlimid; currently on hold. Patient remains afebrile. No active bleeding. Urine culture revealed Klebsiella pneumonia. Oncology is following; defer to their expertise. (6) Leukopenia due to antineoplastic chemotherapy Is this a current diagnosis for this admission?: Yes Plan: We will defer to oncology's expertise. Chemotherapy agent currently on hold. (7) Multiple myeloma Qualifiers: Multiple myeloma remission status: in remission Qualified Code(s): C90.01 - Multiple myeloma in remission Is this a current diagnosis for this admission?: Yes Plan: The patient's primary oncologist is consulted; appreciate Dr. Field's as sistance. Management per his expertise. (8) Obesity (BMI 30.0-34.9) Is this a current diagnosis for this admission?: Yes Plan: Dietary discretion and lifestyle modification are encouraged. BMI 33.6. (9) Shortness of breath Is this a current diagnosis for this admission?: Yes Plan: Resolved. Patient denies dyspnea, orthopnea, cough today. Maintaining oxygen saturations on room air. (10) Hypothyroidism Is this a current diagnosis for this admission?: Yes Plan: Patient's TSH is 4.69. We will obtain follow-up free T3 and T4. This may be a new diagnosis of hypothyroidism requiring levothyroxine at discharge. - Plan Summary Summary: Patient will be admitted for gentle hydration, potassium replacement. We will check her stools for C. difficile Will not start antibiotics at this time pending further lab results Chest x-ray shows no acute cardiopulmonary process 07/16/2019 This morning patient's potassium has come up to 3.2 from admission of 2.7 Retinae has corrected from 2.9 and is now 1.7 I have resumed patient's home meds Continue IV fluids today add potassium supplements and anticipate discharge tomorrow No further vomiting or significant diarrhea 07/17/2019 Temperature 98, pulse 62 ,blood pressure 121/54, O2 sat 100% on room air White count on admission was 4000 yesterday was 2.1 platelets 137,000 (patient is on chemotherapy) Potassium 2.8 on admission yesterday 3.2 today 2.6 Urine culture is pending but urinalysis was positive nitrates negative leukocytes Patient was taking potassium 40 mEq twice daily prior to admission. Patient has had trouble with her potassium levels for some time now. I will increase her potassium to 40 mEq 3 times daily, I sent her on Bactrim 1 tablet twice daily for her UTI Hopefully be able to discharge her tomorrow. 07/18/2019 Vital signs are extremely stable her pulse is around 70 blood pressure 110/64 sats are 100% on room air Patient's potassium is remaining persistently low, this however is a chronic problem and may be exacerbated now by her persistent diarrhea Any rate I would like to try to get it higher before discharge and will consult hematology for suggestions Rechecking certain labs today that are pending. Patient continues to have diarrhea about 5 loose stools per day. C. difficile is negative. Recently started on Septra for her UTI may incidentally help retain more potassium retain more potassium. I did consider puttijng patient on cipro and flagyl, however no bloody diarrhea, sepsis, fever, joint pain, etc. I Yesterday replaces with 120meq po, today will try 160. Maybe futile in light of her underlying disease. I am reluctant to stop diarrhea, though this maybe what is needed. Patient is ready for discharge otherwise. I have discussed with Dr. Medellin. - Time Time Spent with patient: 25-34 minutes Medications reviewed and adjusted accordingly: Yes Anticipated discharge: Home Within: within 48 hours
[2019-07-19] MEDS: LACTOBACILLUS ACIDOPHILUS 250 MG TAB PO SCH (18:19)
[2019-07-19] MEDS: FAMOTIDINE 20 MG TABLET PO SCH (21:48)
[2019-07-20] MEDS: HEPARIN SOD (PORCINE) 5,000 UNIT/ML 1 ML VIAL SUBCUT SCH (05:13)
[2019-07-20] MEDS: POTASSIUM CHLORIDE 20 MEQ PACKET PO SCH ×2 (05:17→11:41)
[2019-07-20] MEDS: NORMAL SALINE 1000 ML 1,000 ML IV PRN (05:18)
--- NOTE | 2019-07-20 08:03 | PDOC PROGRESS REPORT ---
Subjective Progress Note for:: 07/20/19 Subjective:: Pt doing better this am, no new c/o, diarrhea x 3 times only yesterday, tolerated diet yesterday Reason For Visit: MULTIPLE MYELOMA,DEHYDRATION,HYPOKALEMIA, Physical Exam Vital Signs: Temp Pulse Resp BP Pulse Ox 97.8 F 73 17 117/68 100 07/20/19 00:00 07/20/19 00:00 07/20/19 00:00 07/20/19 00:00 07/20/19 00:00 Intake & Output 07/19/19 07/20/19 07/21/19 06:59 06:59 06:59 Intake Total 1170 2816 Balance 1170 2816 Weight 80.6 kg 79.6 kg General appearance: PRESENT: no acute distress, well-developed, well-nourished Head exam: PRESENT: atraumatic, normocephalic Eye exam: PRESENT: conjunctiva pink, EOMI, PERRLA. ABSENT: scleral icterus Ear exam: PRESENT: normal external ear exam Mouth exam: PRESENT: moist, tongue midline Neck exam: ABSENT: carotid bruit, JVD, lymphadenopathy, thyromegaly Respiratory exam: PRESENT: clear to auscultation maxx. ABSENT: rales, rhonchi, wheezes Cardiovascular exam: PRESENT: RRR. ABSENT: diastolic murmur, rubs, systolic murmur Pulses: PRESENT: normal dorsalis pedis pul Vascular exam: PRESENT: normal capillary refill GI/Abdominal exam: PRESENT: normal bowel sounds, soft. ABSENT: distended, guarding, mass, organolmegaly, rebound, tenderness Rectal exam: PRESENT: deferred Extremities exam: PRESENT: full ROM. ABSENT: calf tenderness, clubbing, pedal edema Neurological exam: PRESENT: alert, awake, oriented to person, oriented to place, oriented to time, oriented to situation, CN II-XII grossly intact. ABSENT: motor sensory deficit Psychiatric exam: PRESENT: appropriate affect, normal mood. ABSENT: homicidal ideation, suicidal ideation Skin exam: PRESENT: dry, intact, warm. ABSENT: cyanosis, rash Results Laboratory Results: 07/16/19 05:00 07/19/19 11:40 07/19/19 11:40 Sodium 140.7 Potassium 3.6 Chloride 115 H Carbon Dioxide 13 L Anion Gap 13 BUN 10 Creatinine 1.56 H Est GFR ( Amer) 41 L Glucose 92 Calcium 8.8 07/17/19 08:52 Clean Catch Midstream Urine Culture - Final Klebsiella Pneumoniae 07/15/19 13:00 Troponin I < 0.012 NT-Pro-B Natriuret Pep 382 H Impressions: Chest X-Ray 07/15/19 13:39 IMPRESSION: NO ACUTE RADIOGRAPHIC FINDING IN THE CHEST. Assessment & Plan - Diagnosis (1) Severe diarrhea Is this a current diagnosis for this admission?: Yes Plan: Multifactorial, improving (2) Dehydration Is this a current diagnosis for this admission?: Yes Plan: Improving (3) Hypokalemia due to excessive gastrointestinal loss of potassium Is this a current diagnosis for this admission?: Yes Plan: K getting more stable as diarrhea resolving (4) Leukopenia due to antineoplastic chemotherapy Is this a current diagnosis for this admission?: Yes Plan: Will improve as we hold revlimid and diarrhea resolves (5) Multiple myeloma Qualifiers: Multiple myeloma remission status: in remission Qualified Code(s): C90.01 - Multiple myeloma in remission Is this a current diagnosis for this admission?: Yes Plan: Will cont to hold revlimid, we will see pt in 2-3 wk in office, but have labs done in my office next week. pt knows about plan - Time Time Spent with patient: 35 or more minutes
[2019-07-20 08:39] LABS: HEMATOCRIT 33.9 % (36.0-47.0); HEMOGLOBIN 11.7 g/dL (12.0-15.5); MEAN CORPUSCULAR HEMOGLOBIN 32.3 pg (27.0-33.4); MEAN CORPUSCULAR HGB CONC 34.6 g/dL (32.0-36.0); MEAN CORPUSCULAR VOLUME 93 fl (80-97); PLATELET COUNT 184 10^3/uL (150-450); RED BLOOD COUNT 3.63 10^6/uL (3.72-5.28); RED CELL DISTRIBUTION WIDTH 14.6 % (11.5-14.0); WHITE BLOOD COUNT 2.7 10^3/uL (4.0-10.5)
[2019-07-20 08:55] LABS: ANION GAP 10 (5-19); BLOOD UREA NITROGEN 11 mg/dL (7-20); CALCIUM 8.3 mg/dL (8.4-10.2); CARBON DIOXIDE 14 mmol/L (22-30); CHLORIDE 115 mmol/L (98-107); GLUCOSE 82 mg/dL (75-110)
[2019-07-20] MEDS: DOCUSATE SODIUM 100 MG CAPSULE PO SCH (09:05)
[2019-07-20] MEDS: MULTIVITAMIN TABLET PO SCH (09:19)
[2019-07-20] MEDS: CALCIUM CARBONATE 250 MG/VITAMIN D3 125 UNIT TABLET PO SCH (09:19)
[2019-07-20] MEDS: METOPROLOL TARTRATE 50 MG TABLET PO SCH (09:19)
[2019-07-20] MEDS: SULFAMETHOXAZOLE/TRIMETHOPRIM 800-160 MG TABLET PO SCH (09:19)
[2019-07-20] MEDS: LACTOBACILLUS ACIDOPHILUS 250 MG TAB PO SCH (09:19)
[2019-07-20] MEDS: ASPIRIN 81 MG TABLET, ENT COATED PO SCH (09:19)
[2019-07-20 09:25] LABS: POTASSIUM 4.6 mmol/L (3.6-5.0)
[2019-07-20 09:27] LABS: FREE T3 3.27 pg/mL (2.77-5.27); FREE T4 (FREE THYROXINE) 1.42 ng/dL (0.78-2.19)
[2019-07-20 12:21] VITALS: BP 100/60
--- NOTE | 2019-07-24 17:21 | PDOC DISCHARGE SUMMARY ---
Impression - Admit/DC Date/PCP Admission Date/Primary Care Provider: 07/15/19 16:05 NARDA MODI MD Discharge Date: 07/20/19 - Discharge Diagnosis (1) ANGELINA (acute kidney injury) Is this a current diagnosis for this admission?: Yes (2) Severe diarrhea Is this a current diagnosis for this admission?: Yes (3) Dehydration Is this a current diagnosis for this admission?: Yes (4) Hypokalemia Is this a current diagnosis for this admission?: Yes (5) Pancytopenia Is this a current diagnosis for this admission?: Yes (6) Leukopenia due to antineoplastic chemotherapy Is this a current diagnosis for this admission?: Yes (7) Multiple myeloma Is this a current diagnosis for this admission?: Yes (8) Obesity (BMI 30.0-34.9) Is this a current diagnosis for this admission?: Yes (9) Shortness of breath Is this a current diagnosis for this admission?: Yes (10) Hypothyroidism Is this a current diagnosis for this admission?: Yes - Additional Information Resuscitation Status: Full Code Discharge Diet: Other (Comments) Discharge Activity: Activity As Tolerated, Balance Activity w/Rest, Slowly Increase Activity Referrals: NARDA MODI MD [Primary Care Provider] - 07/26/19 11:00 am Prescriptions: Lactobacillus Acidophilus [Bacid 250 mg Tablet] 250 mg PO BID #20 tab Sulfamethoxazole/Trimethoprim [Septra-Ds 800-160 mg Tablet] 1 tab PO BID #14 tablet Home Medications: Aspirin [Adult Low Dose Aspirin EC] 81 mg PO DAILY 01/31/19 Calcium Carbonate/Vitamin D3 [Calcium 600-Vit D3 800 Tablet] 1 tab PO DAILY 01/31/19 Lansoprazole [Prevacid] 15 mg PO QHS 01/31/19 Lenalidomide [Revlimid] 5 mg PO DAILY 01/31/19 Magnesium Oxide [Magnesium] 500 mg PO DAILY 01/31/19 Multivitamin [Daily Multiple Vitamin] 1 tab PO DAILY 01/31/19 Oxycodone HCl [Oxycodone HCl 10 MG Tablet] 10 mg PO Q12HP PRN 01/31/19 Potassium Chloride [Klor-Con M20] 40 meq PO BID 30 Days #60 tab.er.prt 02/03/19 Metoprolol Tartrate [Lopressor 50 mg Tablet] 50 mg PO DAILY 07/15/19 Acetaminophen [Tylenol 325 mg Tablet] 650 mg PO Q4HP PRN tablet 07/20/19 Lactobacillus Acidophilus [Bacid 250 mg Tablet] 250 mg PO BID #20 tab 07/20/19 Loperamide HCl [Imodium 2 mg Capsule] 2 mg PO Q4HP PRN capsule 07/20/19 Sulfamethoxazole/Trimethoprim [Septra-Ds 800-160 mg Tablet] 1 tab PO BID #14 tablet 07/20/19 History of Present Illiness History of Present Illness: Per H&P by FAYE Weldon: ROBE CLEMENT is a 59 year old female who was admitted through the emergency room for a 2-day history of diarrhea. Patient states that on Thursday she had 6 or 8 loose stools , she had 8 loose stools and today she has had 2. States that last night and today the stools have turned green and have a foul odor. States that a little over a month ago she did have to take antibiotics for dental procedure she thinks it was Cipro and Flagyl. Patient also states that yesterday and especially today she has been short of breath with exertion. She also complains of some different chills in the last couple days, ever she denies denies cough, body aches. She was diagnosed with multiple myeloma approximately 6 years ago and states she has been in remission for 5 years. Does a once daily dose of chemo by mouth. Patient also states she has hypertension and takes Lopressor for this. Patient denies diabetes she denies MA she denies CVA. 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 She comes in now for fever, chills, diarrhea, shortness of breath and multiple myeloma. Hospital Course Hospital Course: The patient was admitted to the medical floor. She was provided generous IV fluids. She was admitted with a creatinine of 2.95 which trended down to 1.56 and then remained stable. This may be her new baseline as her BUN is normal and electrolytes are now stable without continued correction. The patient's chemo therapy agent was placed on hold with subsequent resolution of her diarrhea. Her C. difficile was negative. Unfortunately stool and blood cultures were not obtained. Patient was placed on lactobacillus and Imodium as needed for symptom management. On day of discharge, she reports she has had a soft stool of normal volume and frequency. Electrolytes were monitored and replaced as necessary. She did receive potassium replacement. Urinalysis was positive for UTI and urine culture confirms Klebsiella pneumoniae; patient was discharged home on oral Bactrim. The patient's oncologist was consulted; we will follow-up with him next week for repeat lab work. At time of discharge, patient was in stable condition, and tolerating regular diet. She is advised to follow up with her PCP within [address] Field as scheduled. She is instructed to eat a bland diet and to drink plenty of fluids. She is advised to return to the emergency department as needed for continued symptoms. So Physical Exam Vital Signs: Temp Pulse Resp BP Pulse Ox 98.0 F 55 L 19 100/60 100 07/20/19 12:26 07/20/19 12:26 07/20/19 12:26 07/20/19 12:26 07/20/19 12:26 General appearance: PRESENT: no acute distress, cooperative, well-developed, well-nourished Head exam: PRESENT: atraumatic, normocephalic Eye exam: PRESENT: conjunctiva pink, EOMI, PERRLA. ABSENT: scleral icterus Ear exam: PRESENT: normal external ear exam Mouth exam: PRESENT: moist, tongue midline Respiratory exam: PRESENT: clear to auscultation maxx, symmetrical, unlabored. ABSENT: rales, rhonchi, wheezes Cardiovascular exam: PRESENT: RRR. ABSENT: diastolic murmur, rubs, systolic murmur Pulses: PRESENT: normal dorsalis pedis pul Vascular exam: PRESENT: normal capillary refill GI/Abdominal exam: PRESENT: normal bowel sounds, soft. ABSENT: distended, guarding, mass, organolmegaly, rebound, tenderness Rectal exam: PRESENT: deferred Extremities exam: PRESENT: full ROM. ABSENT: calf tenderness, clubbing, pedal edema Neurological exam: PRESENT: alert, awake, oriented to person, oriented to place, oriented to time, oriented to situation, CN II-XII grossly intact. ABSENT: motor sensory deficit Psychiatric exam: PRESENT: appropriate affect, normal mood. ABSENT: homicidal ideation, suicidal ideation Skin exam: PRESENT: dry, intact, warm. ABSENT: cyanosis, rash Results Laboratory Results: WBC 2.7 10^3/uL (4.0-10.5) L 07/20/19 07:35 RBC 3.63 10^6/uL (3.72-5.28) L 07/20/19 07:35 Hgb 11.7 g/dL (12.0-15.5) L 07/20/19 07:35 Hct 33.9 % (36.0-47.0) L 07/20/19 07:35 MCV 93 fl (80-97) 07/20/19 07:35 MCH 32.3 pg (27.0-33.4) 07/20/19 07:35 MCHC 34.6 g/dL (32.0-36.0) 07/20/19 07:35 RDW 14.6 % (11.5-14.0) H 07/20/19 07:35 Plt Count 184 10^3/uL (150-450) 07/20/19 07:35 Lymph % (Auto) Not Reportable 07/16/19 05:00 [place] % (Auto) Not Reportable 07/16/19 05:00 Eos % (Auto) Not Reportable 07/16/19 05:00 Baso % (Auto) Not Reportable 07/16/19 05:00 Absolute Neuts (auto) Not Reportable 07/16/19 05:00 Absolute Lymphs (auto) Not Reportable 07/16/19 05:00 Absolute Monos (auto) Not Reportable 07/16/19 05:00 Absolute Eos (auto) Not Reportable 07/16/19 05:00 Absolute Basos (auto) Not Reportable 07/16/19 05:00 Total Counted 100 07/16/19 05:00 Seg Neutrophils % Not Reportable 07/16/19 05:00 Seg Neuts % (Manual) 61 % (42-78) 07/16/19 05:00 Band Neutrophils % 8 % (3-5) H 07/16/19 05:00 Lymphocytes % (Manual) 21 % (13-45) 07/16/19 05:00 Monocytes % (Manual) 10 % (3-13) 07/16/19 05:00 Eosinophils % (Manual) 0 % (0-6) 07/16/19 05:00 Basophils % (Manual) 0 % (0-2) 07/16/19 05:00 Abs Neuts (Manual) 1.4 10^3/uL (1.7-8.2) L 07/16/19 05:00 Abs Lymphs (Manual) 0.4 10^3/uL (0.5-4.7) L 07/16/19 05:00 Abs Monocytes (Manual) 0.2 10^3/uL (0.1-1.4) 07/16/19 05:00 Absolute Eos (Manual) 0.0 10^3/uL (0.0-0.6) 07/16/19 05:00 Abs Basophils (Manual) 0.0 10^3/uL (0.0-0.2) 07/16/19 05:00 Giant Platelets PRESENT 07/15/19 13:00 Platelet Comment DECREASED 07/16/19 05:00 Anisocytosis SLIGHT 07/16/19 05:00 Sodium 138.6 mmol/L (137-145) 07/20/19 07:35 Potassium 4.6 mmol/L (3.6-5.0) D 07/20/19 07:35 Chloride 115 mmol/L (98-107) H 07/20/19 07:35 Carbon Dioxide 14 mmol/L (22-30) L 07/20/19 07:35 Anion Gap 10 (5-19) 07/20/19 07:35 BUN 11 mg/dL (7-20) 07/20/19 07:35 Creatinine 1.56 mg/dL (0.52-1.25) H 07/20/19 07:35 Est GFR ( Amer) 41 (>60) L 07/20/19 07:35 Est GFR (MDRD) Non-Af 34 (>60) L 07/20/19 07:35 Glucose 82 mg/dL (75-110) 07/20/19 07:35 Serum Osmolality 278 mOsm/kg (275-301) 07/18/19 10:07 Calcium 8.3 mg/dL (8.4-10.2) L 07/20/19 07:35 Magnesium 1.7 mg/dL (1.6-2.3) 07/20/19 07:35 Total Bilirubin 0.7 mg/dL (0.2-1.3) 07/15/19 13:00 Direct Bilirubin 0.2 mg/dL (0.0-0.4) 07/15/19 13:00 Neonat Total Bilirubin Not Reportable 07/15/19 13:00 Neonat Direct Bilirubin Not Reportable 07/15/19 13:00 Neonat Indirect Bili Not Reportable 07/15/19 13:00 AST 22 U/L (14-36) 07/15/19 13:00 ALT 19 U/L (<35) 07/15/19 13:00 Alkaline Phosphatase 84 U/L (38-126) 07/15/19 13:00 Troponin I < 0.012 ng/mL 07/15/19 13:00 NT-Pro-B Natriuret Pep 382 pg/mL (<125) H 07/15/19 13:00 Total Protein 9.5 g/dL (6.3-8.2) H 07/15/19 13:00 Albumin 4.8 g/dL (3.5-5.0) 07/15/19 13:00 Amylase 66 U/L (30-110) 07/15/19 13:00 Lipase 146.6 U/L (23-300) 07/15/19 13:00 TSH 4.69 uIU/mL (0.47-4.68) H 07/15/19 13:00 Free T4 1.42 ng/dL (0.78-2.19) 07/20/19 07:35 Free T3 pg/mL 3.27 pg/mL (2.77-5.27) 07/20/19 07:35 Urine Color DARK YELLOW 07/16/19 02:35 Urine Appearance CLOUDY 07/16/19 02:35 Urine pH 6.0 (5.0-9.0) 07/16/19 02:35 Ur Specific [place] 1.023 07/16/19 02:35 Urine Protein 100 mg/dL (NEGATIVE) H 07/16/19 02:35 Urine Glucose (UA) NEGATIVE mg/dL (NEGATIVE) 07/16/19 02:35 Urine Ketones NEGATIVE mg/dL (NEGATIVE) 07/16/19 02:35 Urine Blood SMALL (NEGATIVE) H 07/16/19 02:35 Urine Nitrite POSITIVE (NEGATIVE) H 07/16/19 02:35 Urine Bilirubin NEGATIVE (NEGATIVE) 07/16/19 02:35 Urine Urobilinogen NEGATIVE mg/dL (<2.0) 07/16/19 02:35 Ur Leukocyte Esterase NEGATIVE (NEGATIVE) 07/16/19 02:35 Urine WBC (Auto) 3 /HPF 07/16/19 02:35 Urine RBC (Auto) 2 /HPF 07/16/19 02:35 U Hyaline Cast (Auto) 17 /LPF 07/16/19 02:35 Urine Bacteria (Auto) 3+ /HPF 07/16/19 02:35 Squamous Epi Cells Auto 9 /HPF 07/16/19 02:35 Urine Mucus (Auto) MOD /LPF 07/16/19 02:35 Urine Osmolality 571 mOsm/kg (300-900) 07/18/19 15:15 Urine Potassium 54.0 mmol/L (22-164) 07/18/19 15:15 Urine Ascorbic Acid 20 (NEGATIVE) H 07/16/19 02:35 Stl C. Difficile GDH Ag NEGATIVE (NEGATIVE) 07/16/19 02:35 Stl C.difficile Tox A&B NEGATIVE (NEGATIVE) 07/16/19 02:35 Influenza A (Rapid) NEGATIVE (NEGATIVE) 07/15/19 12:21 Influenza B (Rapid) NEGATIVE (NEGATIVE) 07/15/19 12:21 07/15/19 13:00 Troponin I < 0.012 NT-Pro-B Natriuret Pep 382 H Impressions: Chest X-Ray 07/15/19 13:39 IMPRESSION: NO ACUTE RADIOGRAPHIC FINDING IN THE CHEST. Plan Plan of Treatment: The patient is discharged home in stable condition. She is advised to follow-up with Dr. Field's clinic next week as discussed to have follow-up lab work done. Keep follow-up appointment with Dr. Field as scheduled and resume chemotherapy at his direction. Follow up with primary care provider within 1 week. Eat a bland diet advance as tolerated. Drink plenty of fluids. Take medications as prescribed. Return to emergency department as needed for concerning symptoms. Time Spent: Greater than 30 Minutes Stroke Is this a Stroke Patient?: No Acute Heart Failure - Is this a Heart Failure Patient?: No
== END 2019-07-20 12:57 | disposition home or self-care (01) | DRG 683 ==
LOC: ER 10:38 → EH 16:05 → 5 21:08 → UNDODISIN 07-16 10:27
PROVIDERS: ADMIT Hospitalist; ATTEND Hospitalist
DX: N17.9 Acute kidney failure, unspecified (principal); C90.01 Multiple myeloma in remission; N39.0 Urinary tract infection, site not specified; D70.1 Agranulocytosis secondary to cancer chemotherapy; E03.9 Hypothyroidism, unspecified; B96.1 Klebsiella pneumoniae [K. pneumoniae] as the cause of diseases classified elsewhere; D64.9 Anemia, unspecified; E87.6 Hypokalemia; E86.0 Dehydration; I10 Essential (primary) hypertension; E66.9 Obesity, unspecified; R19.7 Diarrhea, unspecified; R06.02 Shortness of breath; Z68.34 Body mass index [BMI] 34.0-34.9, adult; Z79.82 Long term (current) use of aspirin; Z79.899 Other long term (current) drug therapy; Z87.891 Personal history of nicotine dependence; Z88.6 Allergy status to analgesic agent; Z88.3 Allergy status to other anti-infective agents; Z88.0 Allergy status to penicillin; Z80.8 Family history of malignant neoplasm of other organs or systems; Z84.1 Family history of disorders of kidney and ureter
CPT/HCPCS: 36415; 71046; 80048; 80053; 81001; 82150; 83690; 83735; 83880; 83930; 83935; 84133; 84439; 84443; 84481; 84484; 85025; 85027; 87086; 87088; 87186; 87324; 87449; 87804; 93005; 93010; 94640; 96361; 96365; 96375; 99285; G0378; J1644; J2405; J2930; J3480; J3490; J7030; J7620; S0119

== ENCOUNTER → 2020-05-11 | Outpatient (CLI) | payer MEDICARE ==
--- NOTE | 2020-05-11 09:42 | WOMENS IMAGING REPORT ---
EXAM DESCRIPTION: BILAT SCREENING MAMMO W/CAD IMAGES COMPLETED DATE/TIME: 05/11/2020 9:18 am REASON FOR STUDY: Z12.31 ENCNTR SCREEN MAMMOGRAM FOR MALIGNANT NEOPLASM OF BREAST Z12.31 ENCNTR SCR EEN MAMMOGRAM FOR MALIGNANT NEOPLASM OF [place] COMPARISON: 2014 and subsequent EXAM PARAMETERS: Standard craniocaudal and mediolateral oblique views of each breast recorded using digital acquisition. Read with the assistance of CAD. .[facility] - [employer] Version 9.2 LIMITATIONS: None. FINDINGS: No suspicious masses, suspicious calcifications or architectural distortion. No areas of c oncern. IMPRESSION: NEGATIVE MAMMOGRAM. BIRADS 1 BREAST DENSITY: b. There are scattered areas of fibroglandular density. BIRAD: ASSESSMENT: 1 NEGATIVE RECOMMENDATION: ROUTINE SCREENING COMMENT: The patient has been notified of the results by letter per MQSA requirements. Additional no tification policies are in place for contacting patient with suspicious or incomplete findings. Quality ID #[id number]: The [employer] recommends an annual screening mammogram for women aged 40 years or over. This facility utilizes a reminder system to ensure that all patients receive reminder letters, and/or direct phone calls for appointments. This includes reminders for routine scr eening mammograms, diagnostic mammograms, or other Breast Imaging Interventions when appropriate. Th is patient will be placed in the appropriate reminder system. TECHNICAL DOCUMENTATION: FINDING NUMBER: (1) ASSESSMENT: (1) JOB ID: [id number] 2010 [employer]- All Rights Reserved Reading location - IP/workstation name: [email or web address]
== END ==
LOC: WI 08:58
PROVIDERS: ATTEND Family Medicine
DX: Z12.31 Encounter for screening mammogram for malignant neoplasm of breast (principal)
CPT/HCPCS: 77067